=== PATIENT | female | born 1960 | race Caucasian/White ===

== ENCOUNTER → 2016-06-01 | Outpatient (CLI) | payer OTHER ==
[~2016-06-01] MED LIST: ALPR.25T PO; AMBIEN; ASCO500C14 PO; BPR75T PO; BUDE90AE IH; BUPR150T6 PO; CHOL10003 PO; CLIN-81 PO; CROM40SP NS; DIAZ5TAB3 PO; DICY20TA10 PO; DICYCLOMINE; FAMO20TA5 PO; FEXO180T PO; FLT11013 IH; FLUT10SP NS; HYDR-1231 PO; LEVO125T PO; LVF500T PO; LYRICA; NITR100C3 PO; OMEP20CA6 PO; PEG250PW PO; PREG75CA PO; TRAM50TA2 PO; ZLP10T PO; [UNRECOGNIZED DRUG - REMARK]
--- NOTE | 2016-06-01 18:26 | Diagnostic Imaging Report ---
Bilateral screening mammogram The current study was also evaluated with a Computer Aided Detection (CAD) system. Indication: Screening. No current complaints stated on the questionnaire. COMPARISON: 09/21/14. FINDINGS: The breasts are composed of scattered fibroglandular densities. Occasional punctate calcifications seen. Allowing for technique and positional differences, no suspicious change is seen. IMPRESSION: No significant change. ACR BI-RADS Category 2: Benign findings. Result letter will be mailed to the patient. Note: At least 10% of breast cancer is not imaged by mammography. Dictated by: Dictated on workstation # [id number]
== END ==
LOC: RAD 09:54
PROVIDERS: ATTEND Internal Medicine
DX: Z12.31 Encounter for screening mammogram for malignant neoplasm of breast (principal)

== ENCOUNTER → 2016-07-25 | Outpatient (CLI) | payer OTHER ==
[2016-07-25 09:20] LABS: BASOPHILS % (AUTO) 0 % (0-10); EOSINOPHILS # (AUTO) 0.2 10^3/uL (0.0-0.3); EOSINOPHILS % (AUTO) 3 % (0-10); LYMPHOCYTES # (AUTO) 2.7 X 10^3 (1.0-4.0); LYMPHOCYTES % (AUTO) 37 % (12-44); MEAN CORPUSCULAR HEMOGLOBIN 30 PG (25-34); MEAN CORPUSCULAR HGB CONC 33 G/DL (32-36); MEAN CORPUSCULAR VOLUME 92 FL (80-99); MEAN PLATELET VOLUME 12.1 FL (7.4-10.4); MONOCYTES # (AUTO) 0.5 X 10^3 (0.0-1.0); MONOCYTES % (AUTO) 7 % (0-12); NEUTROPHILS # (AUTO) 3.9 X 10^3 (1.8-7.8); NEUTROPHILS % (AUTO) 53 % (42-75); PLATELET COUNT 305 10^3/uL (130-400); RED BLOOD COUNT 4.51 10^6/uL (4.35-5.85); RED CELL DISTRIBUTION WIDTH 15.5 % (10.0-14.5); WHITE BLOOD COUNT 7.3 10^3/uL (4.3-11.0)
[2016-07-25 09:36] LABS: ALANINE AMINOTRANSFERASE 45 U/L (0-55); ALBUMIN 4.1 G/DL (3.2-4.5); ANION GAP 11 MMOL/L (5-14); ASPARTATE AMINO TRANSFERASE 28 U/L (5-34); BILIRUBIN,TOTAL 0.4 MG/DL (0.1-1.0); BLOOD UREA NITROGEN 9 MG/DL (7-18); BUN/CREATININE RATIO 11; CALCIUM 9.4 MG/DL (8.5-10.1); CARBON DIOXIDE 24 MMOL/L (21-32); CHLORIDE 106 MMOL/L (98-107); CHOLESTEROL 201 MG/DL (< 200); DIRECT LDL 120 MG/DL (1-129); GFR ESTIMATED > 60; GLUCOSE 97 MG/DL (70-105); POTASSIUM 4.5 MMOL/L (3.6-5.0); SODIUM 141 MMOL/L (135-145); TOTAL PROTEIN 6.4 G/DL (6.4-8.2); TRIGLYCERIDES 91 MG/DL (<150); VLDL CHOLESTEROL 18 MG/DL (5-40)
[2016-07-25 09:56] LABS: THYROID STIMULATING HORMONE 0.39 UIU/ML (0.35-4.94)
== END ==
LOC: LAB 08:43
PROVIDERS: ATTEND Internal Medicine
DX: Z00.00 Encounter for general adult medical examination without abnormal findings (principal); E55.9 Vitamin D deficiency, unspecified; E03.9 Hypothyroidism, unspecified; E75.6 Lipid storage disorder, unspecified
CPT/HCPCS: 36415; 80053; 80061; 82306; 84436; 84443; 85025

== ENCOUNTER → 2016-10-13 | Outpatient (CLI) | payer OTHER ==
[2016-10-13 18:09] LABS: BASOPHILS # (AUTO) 0.1 10^3/uL (0.0-0.1); BASOPHILS % (AUTO) 1 % (0-10); EOSINOPHILS # (AUTO) 0.3 10^3/uL (0.0-0.3); EOSINOPHILS % (AUTO) 3 % (0-10); LYMPHOCYTES # (AUTO) 3.4 X 10^3 (1.0-4.0); LYMPHOCYTES % (AUTO) 32 % (12-44); MEAN CORPUSCULAR HEMOGLOBIN 30 PG (25-34); MEAN CORPUSCULAR HGB CONC 32 G/DL (32-36); MEAN CORPUSCULAR VOLUME 93 FL (80-99); MEAN PLATELET VOLUME 12.3 FL (7.4-10.4); MONOCYTES # (AUTO) 0.9 X 10^3 (0.0-1.0); MONOCYTES % (AUTO) 8 % (0-12); NEUTROPHILS % (AUTO) 57 % (42-75); PLATELET COUNT 339 10^3/uL (130-400); RED BLOOD COUNT 5.03 10^6/uL (4.35-5.85); RED CELL DISTRIBUTION WIDTH 15.5 % (10.0-14.5); WHITE BLOOD COUNT 10.5 10^3/uL (4.3-11.0)
[2016-10-13 18:41] LABS: ALANINE AMINOTRANSFERASE 41 U/L (0-55); ALBUMIN 4.4 G/DL (3.2-4.5); ANION GAP 11 MMOL/L (5-14); ASPARTATE AMINO TRANSFERASE 26 U/L (5-34); BILIRUBIN,TOTAL 0.4 MG/DL (0.1-1.0); BLOOD UREA NITROGEN 16 MG/DL (7-18); BUN/CREATININE RATIO 19; CALCIUM 9.9 MG/DL (8.5-10.1); CARBON DIOXIDE 25 MMOL/L (21-32); CHLORIDE 104 MMOL/L (98-107); CREATININE SERUM 0.83 MG/DL (0.60-1.30); GFR ESTIMATED > 60; GLUCOSE 87 MG/DL (70-105); POTASSIUM 4.3 MMOL/L (3.6-5.0); SODIUM 140 MMOL/L (135-145); TOTAL PROTEIN 7.9 G/DL (6.4-8.2)
== END ==
LOC: LAB 17:57
PROVIDERS: ATTEND Physician Assistant
DX: L40.0 Psoriasis vulgaris (principal)
CPT/HCPCS: 36415; 80053; 85025

== ENCOUNTER → 2016-10-20 | Outpatient (CLI) | payer OTHER ==
[2016-10-20 08:27] LABS: ALANINE AMINOTRANSFERASE 34 U/L (0-55); ALBUMIN 4.1 G/DL (3.2-4.5); ANION GAP 10 MMOL/L (5-14); ASPARTATE AMINO TRANSFERASE 20 U/L (5-34); BILIRUBIN,TOTAL 0.7 MG/DL (0.1-1.0); BLOOD UREA NITROGEN 15 MG/DL (7-18); BUN/CREATININE RATIO 18; CALCIUM 9.5 MG/DL (8.5-10.1); CARBON DIOXIDE 24 MMOL/L (21-32); CHLORIDE 106 MMOL/L (98-107); CHOLESTEROL 188 MG/DL (< 200); CREATININE SERUM 0.84 MG/DL (0.60-1.30); GFR ESTIMATED > 60; GLUCOSE 119 MG/DL (70-105); SODIUM 140 MMOL/L (135-145); TOTAL PROTEIN 7.1 G/DL (6.4-8.2); TRIGLYCERIDES 98 MG/DL (<150)
[2016-10-20 08:48] LABS: THYROID STIMULATING HORMONE 0.41 UIU/ML (0.35-4.94)
== END ==
LOC: LAB 07:41
PROVIDERS: ATTEND Internal Medicine
DX: Z00.00 Encounter for general adult medical examination without abnormal findings (principal); E77.9 Disorder of glycoprotein metabolism, unspecified; E55.9 Vitamin D deficiency, unspecified; E03.9 Hypothyroidism, unspecified
CPT/HCPCS: 36415; 80053; 82306; 82465; 84439; 84443; 84478

== ENCOUNTER → 2017-03-04 | Outpatient (CLI) | payer OTHER ==
[2017-03-04 08:07] LABS: ALANINE AMINOTRANSFERASE 27 U/L (0-55); ALBUMIN 3.9 GM/DL (3.2-4.5); ANION GAP 8 MMOL/L (5-14); ASPARTATE AMINO TRANSFERASE 21 U/L (5-34); BILIRUBIN,TOTAL 0.4 MG/DL (0.1-1.0); BLOOD UREA NITROGEN 10 MG/DL (7-18); BUN/CREATININE RATIO 14; CALCIUM 9.2 MG/DL (8.5-10.1); CARBON DIOXIDE 25 MMOL/L (21-32); CHLORIDE 104 MMOL/L (98-107); CHOLESTEROL 203 MG/DL (< 200); CREATININE SERUM 0.73 MG/DL (0.60-1.30); DIRECT LDL 114 MG/DL (1-129); GFR ESTIMATED > 60; GLUCOSE 89 MG/DL (70-105); POTASSIUM 4.2 MMOL/L (3.6-5.0); SODIUM 137 MMOL/L (135-145); TRIGLYCERIDES 135 MG/DL (<150); VLDL CHOLESTEROL 27 MG/DL (5-40)
[2017-03-04 08:28] LABS: THYROID STIMULATING HORMONE 2.21 UIU/ML (0.35-4.94)
== END ==
LOC: LAB 07:35
PROVIDERS: ATTEND Internal Medicine
DX: E78.00 Pure hypercholesterolemia, unspecified (principal); E78.1 Pure hyperglyceridemia; E03.9 Hypothyroidism, unspecified
CPT/HCPCS: 36415; 80053; 80061; 84439; 84443

== ENCOUNTER → 2017-03-31 | Outpatient (CLI) | payer OTHER ==
[~2017-03-31] MED LIST changes: +GADOBUTROL 10 MMOL/10 ML (GADAVIST) VIAL IV ONE
--- NOTE | 2017-03-31 16:53 | Diagnostic Imaging Report ---
PROCEDURE: MR imaging of the brain with and without contrast. TECHNIQUE: Multiplanar, multisequence MR imaging of the brain was performed with and without contrast. INDICATION: Intractable absence type of epilepsy. 9 mL of Gadavist is administered intravenously. FINDINGS: There is no diffusion restriction to suggest an acute infarct. There is periventricular and deep white matter T2 hyperintense signal abnormalities likely related to chronic microvascular ischemic changes. These are not associated with mass effect or contrast enhancement. The brainstem and the cerebellum appear unremarkable. Central vascular flow-voids appear grossly unremarkable. The internal auditory canal and inner ear structures appear symmetric. The pituitary gland is normal in size. No hypothalamic or pineal region mass is seen. There is no hypothalamic or pineal region mass. There is no susceptibility artifact seen in the brain on gradient-echo images to suggest blood products from prior hemorrhage. The orbits appear grossly unremarkable. Minimal mucosal thickening in the ethmoid air cells are seen. IMPRESSION: Supratentorial periventricular, and deep white matter T2 hyperintense signal lesions are most commonly secondary to chronic microvascular ischemic changes. These are nonspecific however and could potentially relate to a demyelinating process or small vessel vasculitis in the appropriate clinical settings. No enhancing mass. Dictated by: Dictated on workstation # [id number]
== END ==
LOC: RAD 13:59
PROVIDERS: ATTEND Internal Medicine
DX: G40.A19 Absence epileptic syndrome, intractable, without status epilepticus (principal)
CPT/HCPCS: 70553

== ENCOUNTER → 2017-04-26 | Day surgery (SDC) | payer OTHER ==
[~2017-04-26] MED LIST changes: -GADOBUTROL 10 MMOL/10 ML (GADAVIST) VIAL IV ONE
--- OUTSIDE RECORDS SUMMARY | 2017-04-26 11:43 | XMS REPORT ---
Author ANA Duque [employer] Address Unknown Phone Unavailable Care Team Providers Care Talent Management Manager Name Role Phone ANA KIM Unavailable Allergies No Known Allergies Problems Problem Type Condition Code Onset Dates Condition Status Problem Generalized anxiety disorder F41.1 Active Assessment Dysthymic disorder F34.1 Active Problem Dysthymic disorder F34.1 Active Assessment Generalized anxiety disorder F41.1 Active Medications No Known Medications Procedures Procedure Coding System Code Date Psychotherapy, patient &/family, 45 minutes, established patient CPT-4 57671 Apr 30, 2015 Results No Known Results Summary Purpose e[employer] Submission
--- OUTSIDE RECORDS SUMMARY | 2017-04-26 11:43 | XMS REPORT ---
Author Author ANA KIM [facility] Address [address] [place] [address] Care Team Providers Care Fresh Work Inspector Name Role Phone ANA KIM Unavailable PROBLEMS Type Condition ICD9-CM Code [id number] Code Onset Dates Condition Status SNOMED Code Problem Dysthymic disorder F34.1 Active 81249364 Problem Generalized anxiety disorder F41.1 Active 303803665 ALLERGIES No Information SOCIAL HISTORY Never Assessed PLAN OF CARE Activity Details Follow Up 4 Weeks Reason: Follow-up VITAL SIGNS MEDICATIONS Unknown Medications RESULTS No Results PROCEDURES Procedure Date Ordered Result Body Site Psychotherapy, patient &/family, 45 minutes, established patient July 29, 2016 IMMUNIZATIONS No Known Immunizations
--- OUTSIDE RECORDS SUMMARY | 2017-04-26 11:43 | XMS REPORT ---
Author Author ANA KIM [facility] Address [address] [place] [address] Care Team Providers Care Farrowing Manager Name Role Phone ANA KIM Unavailable PROBLEMS Type Condition ICD9-CM Code [id number] Code Onset Dates Condition Status SNOMED Code Problem Dysthymic disorder F34.1 Active 20800772 Problem Generalized anxiety disorder F41.1 Active [id number] ALLERGIES No Information SOCIAL HISTORY Never Assessed PLAN OF CARE VITAL SIGNS MEDICATIONS Unknown Medications RESULTS No Results PROCEDURES No Known procedures IMMUNIZATIONS No Known Immunizations
--- OUTSIDE RECORDS SUMMARY | 2017-04-26 11:43 | XMS REPORT ---
Author Author ANA KIM [facility] Address [address] [place] [address] Care Team Providers Care Warehouse Production Worker Name Role Phone ANA KIM Unavailable PROBLEMS Type Condition ICD9-CM Code [id number] Code Onset Dates Condition Status SNOMED Code Problem Dysthymic disorder F34.1 Active 42567580 Problem Generalized anxiety disorder F41.1 Active 712075431 ALLERGIES No Information SOCIAL HISTORY Never Assessed PLAN OF CARE Activity Details Follow Up 4 Weeks Reason: FOllow-up VITAL SIGNS MEDICATIONS Unknown Medications RESULTS No Results PROCEDURES Procedure Date Ordered Result Body Site Psychotherapy, patient &/family, 45 minutes, established patient Jul 01, 2016 IMMUNIZATIONS No Known Immunizations
--- OUTSIDE RECORDS SUMMARY | 2017-04-26 11:44 | XMS REPORT ---
Author ANA Duque [employer] Address Unknown Phone Unavailable Care Team Providers Care Change Room Attendant Name Role Phone ANA KIM Unavailable Allergies No Known Allergies Problems Problem Type Condition Code Onset Dates Condition Status Problem Generalized anxiety disorder F41.1 Active Assessment Dysthymic disorder F34.1 Active Problem Dysthymic disorder F34.1 Active Assessment Generalized anxiety disorder F41.1 Active Medications No Known Medications Procedures Procedure Coding System Code Date Psychotherapy, patient &/family, 45 minutes, established patient CPT-4 46464 December 04, 2015 Results No Known Results Summary Purpose eClinicalWorks Submission
--- OUTSIDE RECORDS SUMMARY | 2017-04-26 11:44 | XMS REPORT ---
Author Author ANA KIM [facility] Address [address] [place] [address] Care Team Providers Care Cooker Chip Name Role Phone ANA KIM Unavailable PROBLEMS Type Condition ICD9-CM Code CHV47-CG Code Onset Dates Condition Status SNOMED Code Problem Dysthymic disorder F34.1 Active 98655456 Problem Generalized anxiety disorder F41.1 Active 165322069 Assessment Dysthymic disorder F34.1 Jan, Active [id number] ALLERGIES Unknown Allergies SOCIAL HISTORY No smoking Hx information available PLAN OF CARE VITAL SIGNS MEDICATIONS Unknown Medications RESULTS No Results PROCEDURES Procedure Date Ordered Related Diagnosis Body Site Psychotherapy, patient &/family, 45 minutes, established patient Feb 05, 2016 IMMUNIZATIONS No Known Immunizations
--- OUTSIDE RECORDS SUMMARY | 2017-04-26 11:44 | XMS REPORT ---
Author Author ANA KIM [facility] Address [address] [place] [address] Care Team Providers Care Manager Card Name Role Phone ANA KIM Unavailable PROBLEMS Type Condition ICD9-CM Code [id number] Code Onset Dates Condition Status SNOMED Code Problem Dysthymic disorder F34.1 Active 87454010 Problem Generalized anxiety disorder F41.1 Active [id number] ALLERGIES No Information SOCIAL HISTORY Never Assessed PLAN OF CARE Activity Details Follow Up 4 Weeks Reason: Follow-up VITAL SIGNS MEDICATIONS Unknown Medications RESULTS No Results PROCEDURES Procedure Date Ordered Result Body Site Psychotherapy, patient &/family, 45 minutes, established patient September 23, 2016 IMMUNIZATIONS No Known Immunizations
--- OUTSIDE RECORDS SUMMARY | 2017-04-26 11:45 | XMS REPORT | Clinical Summary ---
Author Author User, CYNDI Organization Pending Sale To [facility] Address Unknown Phone Unavailable Allergies, Adverse Reactions, Alerts Allergy Name Reaction Description Start Date Severity Status Provider PENICILLIN Critical Active Radha Kisha Archibald ALBUTEROL esophageal spasms Critical Active Radha Kisha Archibald SULFA Critical Active Radha Kisha Álvarezner ANTI-INFLAMMATORIES Esophageal spasms, rash Critical Active Radha Kisha Archibald Conditions or Problems Problem Name Problem Code Onset Date Status Entry Date Provider Comment Standard Description Annotate MUSCLE SPASM, BACK 724.8 Resolved Radha Archibald Other symptoms referable to back HYPOTHYROIDISM 244.9 Active Radha Archibald Unspecified hypothyroidism FIBROMYALGIA 729.1 Active Radha Archibald Myalgia and myositis, unspecified SMOKER 305.1 Resolved Radha Archibald Tobacco use disorder DEPRESSION 311 Active Radha Archibadl Depressive disorder, not elsewhere classified INSOMNIA, CHRONIC 780.52 Active Radha Archibald Insomnia, unspecified NEUROPATHY, IDIOPATHIC PERIPHERAL 356.9 Resolved Radha Archibald Unspecified idiopathic peripheral neuropathy DERMATITIS, INFECTIVE, EYELID W/DEFORMITY 373.4 Resolved Radha Archibald Infective dermatitis of eyelid of types resulting in deformity TOE PAIN 729.5 Resolved Radha Archibald Pain in limb CALLUS, RIGHT FOOT 700 Resolved Radha Archibald Corns and callosities ANOMALY, CONGENITAL, 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 Radha Archibald Anomalies of foot, congenital, NEC NEUROPATHY, IDIOPATHIC PERIPHERAL 356.9 Resolved Radha Archibald Unspecified idiopathic peripheral neuropathy SCREENING FOR CONTAMINATION NEC V82.5 Resolved Radha Archibald Screening for chemical poisoning and other contamination ECZEMA 692.9 Resolved Radha Archibald Contact dermatitis and other eczema, unspecified cause COUGH 786.2 Resolved Radha Archibald Cough RALES 786.7 Resolved Radha Archibald Abnormal chest sounds DYSPHAGIA 787.2 Resolved Radha Archibald Dysphagia GERD 530.81 Active Radha Archibald Esophageal reflux FINGER PAIN 729.5 Resolved Radha Archibald Pain in limb COUGH 786.2 Resolved Radha Archibald Cough BRONCHITIS 490 Resolved Radha Archibald Bronchitis, not specified as acute or chronic WHEEZING 786.07 Resolved Radha Archibald Wheezing VAGINITIS 616.1 Resolved Radha Archibald Vaginitis and vulvovaginitis VAGINAL DISCHARGE 623.5 Resolved Radha Archibald Leukorrhea, not specified as infective TINEA CRURIS 110.3 Resolved Radha Archibald Dermatophytosis of groin and perianal area HAND PAIN, LEFT 729.5 Resolved Radha Archibald Pain in limb FLANK PAIN, LEFT 789.09 Resolved Radha Archibald Abdominal pain, other specified site; multiple sites SCIATICA 724.3 Resolved Radha Archibald Sciatica OM, ACUTE SEROUS 381.01 Resolved Radha Archibald Acute serous otitis media ENTHESOPATHY, HIP 726.5 Resolved Radha Archibald Enthesopathy of hip region WELL WOMAN V70.0 Resolved Radha Archibald Routine general medical examination at a health care facility SYMPTOM, WHEEZING 786.07 Resolved Radha Archibald Wheezing CHEST PAIN, ATYPICAL 786.59 Resolved Radha Archibald Other chest pain ABDOMINAL PAIN, LOWER 789.09 Resolved Radha Archibald Abdominal pain, other specified site; multiple sites HEMATOCHEZIA 578.1 Resolved Radha Archibald Blood in stool LEG PAIN, RIGHT 729.5 Resolved Radha Archibald Pain in limb HYPERGLYCEMIA, MILD 790.6 Resolved Radha Archibald Other abnormal blood chemistry MENOPAUSAL SYNDROME 627.0 Resolved Radha Archibald Premenopausal menorrhagia CELLULITIS 682.9 Resolved Radha Archibald Cellulitis and abscess of unspecified sites URTICARIA, ACUTE 708.9 Resolved Radha Archibald Unspecified urticaria CHEST PAIN, ATYPICAL 786.59 Resolved Radha Archibald Other chest pain GANGLION CYST, WRIST, RIGHT 727.41 Active Radha Archibald Ganglion of joint WELL WOMAN V70.0 Resolved Radha Archibald Routine general medical examination at a health care facility CONCUSSION WITH LOC OF 30 MINUTES OR LESS 850.11 Resolved 09/26 Radha Archibald Concussion with loss of consciousness of 30 minutes or less 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 Radha Archibald Narcolepsy without cataplexy FATIGUE 780.79 Active Radha Archibald Other malaise and fatigue HEMORRHOIDS 455.6 Active Radha Archibald Unspecified hemorrhoids without mention of complication WELL WOMAN V70.0 Resolved Radha Archibald Routine general medical examination at a health care facility WHEEZING 786.07 Resolved Radha Archibald Wheezing CELLULITIS/ABSCESS, SITE NEC 682.8 Resolved Radha Archibald Cellulitis and abscess of other specified sites WEIGHT GAIN, ABNORMAL 783.1 Active Radha Archibald Abnormal weight gain Medication List Medication Instructions Start Date Stop Date Generic Name NDC Status Provider Patient Instruction LEVAQUIN 500 MG TAB 1 PO QD LEVOFLOXACIN 96803040099 No Longer Active Radha Archibald PREDNISONE 10 MG TAB 4 PO at one time for 2 days, then 2 PO at one time for 3 days, then 1 PO daily for 4 days. PREDNISONE 08561100010 No Longer Active Radha Archibald BIAXIN 500 MG TAB 1 PO BID CLARITHROMYCIN 40034322538 No Longer Active Radha Archibald LEVOTHYROXINE SODIUM 125 MCG TABS 1 PO daily LEVOTHYROXINE SODIUM 59754782123 Active Sylvia Kahn PRILOSEC 20 MG CPDR 1 PO BID OMEPRAZOLE 32732334648 Active Sylvia Kahn VERAMYST 27.5 MCG/SPRAY SUSP 2 puffs each nostril daily FLUTICASONE FUROATE 07080305422 No Longer Active Radha Archibald NASALCROM 5.2 MG/ACT AERS 2 puffs each nostril prn CROMOLYN SODIUM 17948070178 No Longer Active Radhachristiano Archibald MIRALAX POWD 1 scoop in 4oz of water PO daily prn POLYETHYLENE GLYCOL 3350 97230580883 No Longer Active Radha Kisha Archibald PEPCID 20 MG TABS 1 PO daily FAMOTIDINE 17274862280 No Longer Active Radha Kisha Archibald WELLBUTRIN 75 MG TABS 1 PO TID BUPROPION HCL 06749917636 No Longer Active Radha Kisha Archibald AMBIEN 5 MG TABS 1 PO QHS ZOLPIDEM TARTRATE 62259730272 Active Sylvia Kahn NITROSTAT 0.4 MG SL TAB 1 pill under tongue prn chest pain. 11/08 NITROGLYCERIN 39263778978 No Longer Active Radha Kisha Archibald CLOBETASOL PROPIONATE 0.05 % FOAM Apply to affected scalp daily CLOBETASOL PROPIONATE 14013943733 No Longer Active Radha Kisha Archibald LYRICA 75 MG CAPS 1 PO BID PREGABALIN 85099222194 Active Sylvia Kahn ATARAX 25 MG TAB 1 PO Q4 hours prn itching HYDROXYZINE HCL No Longer Active Radhachristiano Archibald PREDNISONE 20 MG TAB 3 pills daily at once for 3 days, 2 pills daily at once for 3 days, 1 once daily for 3 days PREDNISONE 08845818504 No Longer Active Radhachristiano Archibald EFFEXOR XR 150 MG [id number] 1 PO daily VENLAFAXINE HCL 80868936936 Active Sylvia Kahn BACTROBAN 2 % CREAM Apply to affected area TID MUPIROCIN CALCIUM 35704291627 No Longer Active Radhachristiano Archibald DOXYCYCLINE HYCLATE 100 MG CAP 1 po BID DOXYCYCLINE HYCLATE 52908593157 No Longer Active Radhachristiano Archibald PRISTIQ 50 MG [id number] 1 PO daily DESVENLAFAXINE SUCCINATE 01395033068 No Longer Active Radha Kisha Archibald PREDNISONE 20 MG TAB 2 pills at once for 2 days then 1 pill daily for 2 days PREDNISONE 93356183760 No Longer Active Radha Kisha Archibald BIAXIN 500 MG TAB 1 PO BID CLARITHROMYCIN 50639016109 No Longer Active Radha Kisha Archibald QVAR 80 MCG/ACT AERS 2 puffs BID BECLOMETHASONE DIPROPIONATE 48636966810 No Longer Active Radha Kisha Archibald PULMICORT FLEXHALER 90 MCG/ACT AEPB 1 puff twice daily BUDESONIDE 92775871403 Active Sylviavinnie Vivastis FLOVENT 110 MCG/ACT AEROSOL 1 puff BID prn FLUTICASONE PROPIONATE (INHAL) No Longer Active Radha Kisha Archibald PROAIR HFA 108 (90 BASE) MCG/ACT AERS 2 puff Q4 hrs prn wheezing ALBUTEROL SULFATE 23011151627 Active Radha Kisha Archibald TESSALON 200 MG CAPS 1 PO TID prn cough BENZONATATE 98187507618 No Longer Active Radha Kisha Archibald PREDNISONE 20 MG TAB 2 pills at once for 2 days then 1 pill daily for 2 days PREDNISONE 97491214971 No Longer Active Radha Kisha Archibald BIAXIN 500 MG TAB 1 PO BID CLARITHROMYCIN 63375797951 No Longer Active Radha Kisha Archibald TESSALON 200 MG CAPS 1 PO TID prn cough BENZONATATE 10711784801 No Longer Active Radha Kisha Archibald BIAXIN XL PAC 500 MG TB24 2 pills at same time daily for 7 days CLARITHROMYCIN 65241325104 No Longer Active Radha Kisha Archibald PRISTIQ 50 MG [id number] 1 PO daily DESVENLAFAXINE SUCCINATE 18221718275 No Longer Active Radhachristiano Archibald WELLBUTRIN 75 MG TABS 1 PO daily for 1 week then 1 PO every other day for 1 week then stop and go on Cymbalta 30mg daily. BUPROPION HCL 92195228453 No Longer Active Radhachristiano Archibald CYMBALTA 30 MG CPEP 1 PO daily DULOXETINE HCL 72656092909 No Longer Active Radha Kisha Archibald PREDNISONE 20 MG TAB 3 pills daily at once for 3 days, 2 pills daily at once for 4 days, 1 once daily for 3 days PREDNISONE 29417575074 No Longer Active Radhachristiano Archibald CYMBALTA 60 MG CPEP 1 PO Daily DULOXETINE HCL 68304032371 No Longer Active Radhachristiano Archibald DIFLUCAN 150 MG TAB 1 PO QD once FLUCONAZOLE 73461094319 No Longer Active Radhachristiano Archibald LUXIQ 0.12 % FOAM Apply to affected area on scalp daily prn BETAMETHASONE VALERATE 82223104990 No Longer Active Sylviavinnie Kahn CYMBALTA 30 MG CPEP 1 PO Daily for 7 days then change to 60mg Daily DULOXETINE HCL 71084793334 No Longer Active Radha Archibald NAHEED 60 MG CAP 1 PO BID FEXOFENADINE HCL No Longer Active Radhachristiano Archibald NAHEED 180 MG TABS 1 PO QD FEXOFENADINE HCL 66166920369 Active Radhachristiano Archibald VITAMIN D 1000 UNIT TABS 1 PO Daily CHOLECALCIFEROL 90451932824 Active Radhachristiano Archibald TRAMADOL HCL 50 MG TABS 1-2 PO Q6hrs prn pain not to exceed 8 pills a day TRAMADOL HCL 31550764082 Active Radhachristiano Archibald XANAX 0.25 MG TABS 1 PO Q6hrs prn ALPRAZOLAM 71384717909 Active Radha Kisha Archibald DICYCLOMINE HCL 20 MG TABS 1 PO QID DICYCLOMINE HCL 85764710549 Active Radha Kisha Archibald VITAMIN C 500 MG TAB 1 PO daily ASCORBIC ACID 45764675819 Active Radha Kisha Archibald XANAX 0.25 MG TABS 1-2 q 6 hrs. prn ALPRAZOLAM 44374405190 No Longer Active Radha Kisha Archibald FLOVENT HFA 110 MCG/ACT AERO 1 puff twice daily prn FLUTICASONE PROPIONATE HFA 94511853683 No Longer Active Radha Kisha Archibald KENALOG 0.1 % CREA apply bid to affected areas no longer than 7 days in a row TRIAMCINOLONE ACETONIDE 00702717158 No Longer Active Radha Kisha Archibald NASONEX 50 MCG/ACT SUSP 2 puffs QD prn MOMETASONE FUROATE 25415156955 No Longer Active Radha Kisha Archibald LORTAB 5 5-500 MG TABS 1 to 2 PO Q6hrs prn ACETAMINOPHEN-HYDROCODONE 93878218321 No Longer Active Radha Kisha Archibald PREDNISONE 20 MG TAB 3 PO daily for 1 days, 2 PO daily for 2 days then 1 PO daily for 2 days PREDNISONE 44561241237 No Longer Active Radha Kisha Archibald TESSALON 200 MG CAPS 1 PO TID prn BENZONATATE 63952657681 No Longer Active Radha Kisha Archibald ROBITUSSIN A-C 10-100 MG/5ML SYRUP 1 teaspoon PO Q 4-6 hr prn ROBITUSSIN A-C 10-100 MG/5ML SYRUP 86680174985 No Longer Active Radha Kisha Archibald BIAXIN XL PAC 500 MG TB24 2 pills at same time daily for 7 days CLARITHROMYCIN 75278894387 No Longer Active Radha Kisha Archibald LYRICA 75 MG CAPS 1 PO BID PREGABALIN 28773007340 No Longer Active Radha Archibald PREDNISONE 20 MG TAB 3 PO daily for 1 days, 2 PO daily for 2 days then 1 PO daily for 2 days PREDNISONE 28786623632 No Longer Active Radhachristiano Archibald TRIAMCINOLONE ACETONIDE 0.1 % OINT apply very small amount on q-tip to right lower eyel id area BID for 7 days TRIAMCINOLONE ACETONIDE 46248468161 No Longer Active Radhachristiano Archibald CILOXAN 0.3 % SOLN 2 drops right eye TID for 7 days CIPROFLOXACIN HCL 52136708306 No Longer Active Radhachrisitano Archibald CHANTIX 1 MG TABS 1 po BID VARENICLINE TARTRATE 90620330688 No Longer Active Radhachristiano Archibald LIDOCAINE VISCOUS 2 % SOLN 1/2 teaspoon gargle Q 2 hrs prn 05/24 LIDOCAINE HCL 44391877223 No Longer Active Radha Archibald DIFLUCAN 150 MG TAB 1 PO QD FOR 3 DAYS FLUCONAZOLE 43491652372 No Longer Active Adryan Lawrence TERAZOL 7 0.4 % CREA 1 applicator full per vagina QHS for 7 days TERCONAZOLE VAGINAL 05679523675 No Longer Active Adryan Lawrence LOTRISONE 0.05-1 % CREAM apply to affected areas BID for 7 days CLOTRIMAZOLE-BETAMETHASONE 81339892383 No Longer Active Radhachristiano Archibald BIAXIN 500 MG TAB 1 PO BID for 7 days CLARITHROMYCIN 31884735965 No Longer Active Radhachristiano Archibald PREDNISONE 20 MG TAB 3 PO daily for 2 days, 2 PO daily for 2 days, 1 PO daily for 2 days PREDNISONE 81229501034 No Longer Active Radhachristiano Archibald CODICLEAR DH 5-100 MG/5ML SYRP 5 cc Po Q4-6prn HYDROCODONE-GUAIFENESIN 45004448320 No Longer Active Radha Kisha Archibald AUGMENTIN 875-125 MG TAB 1 PO BID AMOXICILLIN-POT CLAVULANATE 35287836646 No Longer Active Radha Kisha Archibald NEXIUM 40 MG CPDR 1 PO daily ESOMEPRAZOLE MAGNESIUM 07429634282 No Longer Active Radha Kisha Archibald WELLBUTRIN XL 150 MG TB24 1 PO daily BUPROPION HCL 68607399400 No Longer Active Radha Kisha Archibald FLOVENT 220 MCG/ACT AERO 1 puff BID for 7 days FLUTICASONE PROPIONATE (INHAL) 41693311307 No Longer Active Radha Kisha Archibald NEURONTIN 100 MG CAP 1 PO QHS GABAPENTIN 31900321532 No Longer Active Radha Kisha Archibald CILOXAN 0.3 % OINT 1/2 inch ribbon to right eye TID x 1 week 2003 CIPROFLOXACIN HCL 27401571983 No Longer Active Radha Kisha Archibald TYLENOL/CODEINE #3 300-30 MG TABS 1 po Q 4-6 hrs. prn pain 03/17 ACETAMINOPHEN-CODEINE 73714796083 No Longer Active Radha Kisha Archibald SOMA 350 MG TABS 1 po TID prn CARISOPRODOL 05148316562 No Longer Active Radha Kisha Archibald CLARINEX 5 MG TABS 1 po daily DESLORATADINE 82589416483 No Longer Active Ardha Kisha Archibald Immunizations Vaccine Administration Date Value Standard Description tetanus immunization Done tetanus toxoid, unspecified formulation Influenza vaccine given done influenza virus vaccine, unspecified formulation Vital Signs Date Name Value Unit Range Description blood pressure, diastolic - 8462-4 65 mm[Hg] BP hodge blood pressure, systolic - 8480-6 135 mm[Hg] BP sys pulse rate E&M - 8867-4 70 /min Heart rate respiratory rate E&M - 9279-1 14 /min Resp rate weight E&M - 3141-9 234 [lb_av] Weight Measured blood pressure, diastolic - 8462-4 68 mm[Hg] BP hodge blood pressure, systolic - 8480-6 132 mm[Hg] BP sys pulse rate E&M - 8867-4 70 /min Heart rate respiratory rate E&M - 9279-1 14 /min Resp rate temperature E&M 97.1 [degF] Body temperature weight E&M - 3141-9 238 [lb_av] Weight Measured blood pressure, diastolic - 8462-4 60 mm[Hg] BP hodge blood pressure, systolic - 8480-6 116 mm[Hg] BP sys pulse rate E&M - 8867-4 68 /min Heart rate respiratory rate E&M - 9279-1 14 /min Resp rate temperature E&M 98.4 [degF] Body temperature weight E&M - 3141-9 203 [lb_av] Weight Measured blood pressure, diastolic - 8462-4 84 mm[Hg] BP hodge blood pressure, systolic - 8480-6 142 mm[Hg] BP sys pulse rate E&M - 8867-4 84 /min Heart rate respiratory rate E&M - 9279-1 14 /min Resp rate temperature E&M 98.3 [degF] Body temperature weight E&M - 3141-9 203 [lb_av] Weight Measured Diagnostic Results Date Name Value Unit Range Description Clinical Lists Update: CBC,CMP,FLP,TSH,Free T4 - Chemistry alkaline phosphatase, serum 83 U/L albumin, serum 4.0 g/dL calcium, serum 9.3 mg/dL chloride, serum 104 mmol/L cholesterol, serum 221 mg/dL carbon dioxide, venous blood 28 mmol/L creatinine, serum 0.81 mg/dL thyroxine, serum, free 1.17 ng/dL HDL cholesterol, serum 68 mg/dL thyroid stimulating hormone, serum 1.94 u[iU]/mL LDL cholesterol, serum 132 mg/dL potassium, serum 4.2 mmol/L protein, total, serum 6.9 g/dL aspartate aminotransferase (SGOT), serum 43 U/L alanine aminotransferase (SGPT), serum 64 U/L bilirubin, serum, total 0.5 mg/dL triglyceride, serum, fasting 84 mg/dL sodium, serum 141 mmol/L very low density lipoproteins 17 mg/dL glucose, plasma fasting 98 mg/dL Estimated Glomerular Filtration Rate (calc) >60 mL/min/1.73m2 urea nitrogen, blood 11 mg/dL Clinical Lists Update: CMP,FLP,TSH,Free T4 - Chemistry albumin, serum 4.0 g/dL alkaline phosphatase, serum 88 U/L urea nitrogen, blood 8 mg/dL calcium, serum 9.8 mg/dL chloride, serum 107 mmol/L cholesterol, serum 205 mg/dL carbon dioxide, venous blood 26 mmol/L creatinine, serum 0.77 mg/dL thyroxine, serum, free 1.19 ng/dL HDL cholesterol, serum 62 mg/dL thyroid stimulating hormone, serum 3.53 u[iU]/mL LDL cholesterol, serum 127 mg/dL potassium, serum 4.3 mmol/L protein, total, serum 7.1 g/dL aspartate aminotransferase (SGOT), serum 39 U/L alanine aminotransferase (SGPT), serum 53 U/L bilirubin, serum, total 0.4 mg/dL triglyceride, serum, fasting 96 mg/dL sodium, serum 144 mmol/L very low density lipoproteins 19 mg/dL Estimated Glomerular Filtration Rate (calc) >60 mL/min/1.73m2 glucose, plasma fasting 100 mg/dL Encounters Code Encounter Date Provider Facility CPT-31014 Ofc Vst, Est Level IV 14:29:57 CDT Radha Kisha Archibald [facility] CPT-36091 Ofc Vst, Est Level IV 17:11:25 CDT Radha Kisha Archibald [facility] CPT-82566 Ofc Vst, Est Level III 17:34:21 ADMINISTRATIVE OFFICE MANAGER [facility] Kisha Archibald [place] CPT-90780 Ofc Vst, Est Level IV 19:46:53 CDT Rahdachristiano Archibald, DO, FACP CPT-10710 Ofc Vst, Est Level III 21:26:57 CDT Radhachristiano Archibald, DO, FACP CPT-72317 Ofc Vst, Est Level III 21:40:05 ADMINISTRATIVE OFFICE MANAGER Radha Archibald, DO, FACP CPT-43705 Ofc Vst, Est Level III 11:54:44 CDT Radhachristiano Archibald, DO, FACP CPT-92804 Ofc Vst, Est Level III 12:59:52 ADMINISTRATIVE OFFICE MANAGER Radha Archibald, DO, FACP CPT-92856 Ofc Vst, Est Level III 14:13:57 CDT Radhachristiano Archibald, DO, FACP CPT-28172 Ofc Vst, Est Level IV 15:12:56 CDT Radha Kisha Archibald [facility] CPT-44807 Ofc Vst, Est Level IV 10:49:43 CDT Radhachristiano Collier Dragan, DO, FACP CPT-30705 Ofc Vst, Est Level IV 15:49:18 CDT Radha Collier Dragan, DO, FACP CPT-28537 Ofc Vst, Est Level IV 10:47:30 ADMINISTRATIVE OFFICE MANAGER Radha Collier Dragan, DO, FACP CPT-72618 Ofc Vst, Est Level III 15:05:01 ADMINISTRATIVE OFFICE MANAGER Radha Collier Dragan, DO, FACP CPT-28321 Ofc Vst, Est Level IV 15:14:17 CDT Radha Archibald [facility] CPT-85237 Ofc Vst, Est Level IV 16:12:25 CDT Radha Kisha Collier Dragan, DO, FACP CPT-70107 Office Consult, Level IV 11:08:13 ADMINISTRATIVE OFFICE MANAGER Radha Collier Dragan, DO, FACP CPT-52311 Ofc Vst, Est Level IV 09:39:05 CDT Radhachristiano Collier Dragan, DO, FACP CPT-21113 Ofc Vst, Est Level IV 09:46:15 CDT Radhachristiano Collier Dragan, DO, FACP CPT-00413 Ofc Vst, Est Level V 09:27:49 CDT Radha Kisha Collier Dragan, DO, FACP CPT-08816 Ofc Vst, Est Level V 16:56:13 CDT Radha Archibald [facility] CPT-10557 Ofc Vst, Est Level V 16:24:52 CDT Radhachristiano Collier Dragan, DO, FACP CPT-29477 Ofc Vst, Est Level IV 15:51:57 CDT Radhachristiano Collier Archibald, DO, FACP CPT-93335 Ofc Vst, Est Level III 14:02:43 CDT Radha Collier Dragan, DO, FACP CPT-37796 Ofc Vst, Est Level III 09:45:54 CDT Radha Kisha Collier Dragan, DO, FACP CPT-05219 Ofc Vst, Est Level III 12:11:16 CDT Radha Kisha Collier Dragan, DO, FACP CPT-58121 Ofc Vst, Est Level IV 14:28:01 ADMINISTRATIVE OFFICE MANAGER Radha Collier Dragan, DO, FACP CPT-02618 Ofc Vst, Est Level IV 13:04:53 ADMINISTRATIVE OFFICE MANAGER Radha Collier Dragan, DO, FACP CPT-52119 Ofc Vst, Est Level III 09:53:23 ADMINISTRATIVE OFFICE MANAGER Radha Collier Dragan, DO, FACP CPT-84913 Ofc Vst, Est Level IV 10:00:09 ADMINISTRATIVE OFFICE MANAGER Radha Collier Dragan, DO, FACP CPT-41828 Ofc Vst, Est Level III 16:29:13 CDT Radha Collier Dragan, DO, FACP CPT-02553 Ofc Vst, Est Level III 12:09:22 CDT Radha Kisha Collier Dragan, DO, FACP CPT-57769 Ofc Vst, Est Level III 16:07:26 CDT Radha Kisha Álvarezner Radha Collier Dragan, DO, FACP CPT-64848 Ofc Vst, Est Level IV 16:44:16 ADMINISTRATIVE OFFICE MANAGER Radha Kisha Dragan [facility] CPT-19328 Ofc Vst, Est Level IV 10:11:36 ADMINISTRATIVE OFFICE MANAGER Radha Archibald [facility] CPT-58225 Ofc Vst, Est Level IV 10:48:17 CDT Radha Kisha Álvarezner [facility] [place] CPT-21970 Ofc Vst, Est Level IV 09:30:04 CDT Radha Kisha Archibald [facility] [place] CPT-99628 Ofc Vst, Est Level III 09:56:39 CDT Radha Kisha Archibald [facility] [place] CPT-53603 Ofc Vst, Est Level IV 09:50:35 ADMINISTRATIVE OFFICE MANAGER Radha Álvarezner [facility] [place] CPT-30756 Ofc Vst, Est Level IV 17:03:46 CDT Radha Kisha Álvarezner [facility] [place] CPT-99672 Ofc Vst, Est Level IV 19:02:53 CDT Radha Kisha Álvarezner [facility] [place] CPT-60766 Ofc Vst, Est Level II 17:46:16 ADMINISTRATIVE OFFICE MANAGER Radha Kelleyannrosaura ÁlvarezArchibald [facility] [place] CPT-38027 Ofc Vst, Est Level III 17:24:30 ADMINISTRATIVE OFFICE MANAGER Radha Archibald [facility] [place] CPT-05344 Ofc Vst, Est Level III 17:12:42 ADMINISTRATIVE OFFICE MANAGER Radha Álvarezner [facility] [place] CPT-52126 Ofc Vst, New Level III 17:25:48 CDT Radha Archibald [facility] [place] Procedures Code Procedure Name Date Entry Date Standard Description CPT-00850 Handling of specimen from office to lab 13:07:02 ADMINISTRATIVE OFFICE MANAGER CPT-11077 Preventive, Est, (40-64) 13:07:02 ADMINISTRATIVE OFFICE MANAGER CPT-27393 Handling of specimen from office to lab 20:21:28 ADMINISTRATIVE OFFICE MANAGER CPT-11088 Preventive, Est, (40-64) 20:21:28 ADMINISTRATIVE OFFICE MANAGER CPT-09793 Injection 12:59:52 ADMINISTRATIVE OFFICE MANAGER CPT-01799 Handling of specimen from office to lab 16:51:06 ADMINISTRATIVE OFFICE MANAGER CPT-59674 Preventive, Est, (40-64) 16:51:06 ADMINISTRATIVE OFFICE MANAGER CPT-11221 Handling of specimen from office to lab 12:56:15 CDT CPT-03318 Preventive, Est, (40-64) 12:56:15 CDT CPT-95878 Preventive, Est, (40-64) 11:45:03 CDT CPT-50391 Handling of specimen from office to lab 11:45:03 CDT CPT-73270 Preventive, Est, (40-64) 10:34:08 CDT CPT-97377 Handling of specimen from office to lab 10:34:08 CDT CPT-39159 EKG w/ Interpretation 16:24:52 CDT CPT-22557 Preventive, Est, (40-64) 16:09:59 CDT CPT-75759 Handling of specimen from office to lab 16:02:29 CDT CPT-55985 Handling of specimen from office to lab 16:29:13 CDT CPT-55304 Injection 12:09:22 CDT
--- OUTSIDE RECORDS SUMMARY | 2017-04-26 11:46 | XMS REPORT ---
Author Author ANA KIM [facility] Address [address] [place] [address] Care Team Providers Care Oceanographic Meteorologist Name Role Phone ANA KIM Unavailable PROBLEMS Type Condition ICD9-CM Code ZSO00-MU Code Onset Dates Condition Status SNOMED Code Problem Dysthymic disorder F34.1 Active 06395647 Problem Generalized anxiety disorder F41.1 Active 745513104 ALLERGIES Unknown Allergies SOCIAL HISTORY No smoking Hx information available PLAN OF CARE Activity Details Follow Up 4 Weeks Reason: Follow-up VITAL SIGNS MEDICATIONS Unknown Medications RESULTS No Results PROCEDURES Procedure Date Ordered Related Diagnosis Body Site Psychotherapy, patient &/family, 45 minutes, established patient Jun 01, 2016 IMMUNIZATIONS No Known Immunizations
--- OUTSIDE RECORDS SUMMARY | 2017-04-26 11:47 | XMS REPORT ---
Author ANA Duque eClinicalWorks Address Unknown Phone Unavailable Care Team Providers Care Focusing Machine Operator Name Role Phone ANA KIM Unavailable Allergies No Known Allergies Problems Problem Type Condition Code Onset Dates Condition Status Problem Generalized anxiety disorder F41.1 Active Assessment Dysthymic disorder F34.1 Active Problem Dysthymic disorder F34.1 Active Assessment Generalized anxiety disorder F41.1 Active Medications No Known Medications Procedures Procedure Coding System Code Date Psychotherapy, patient &/family, 45 minutes, established patient CPT-4 89182 Mar 27, 2015 Results No Known Results Summary Purpose eClinicalWorks Submission
--- OUTSIDE RECORDS SUMMARY | 2017-04-26 11:49 | XMS REPORT | Clinical Summary ---
Author Author User, CYNDI Organization Formerly [facility] Address Unknown Phone Unavailable Allergies, Adverse Reactions, [...] Tobacco use disorder DEPRESSION 311 Active Radha Archibald Depressive disorder, not elsewhere classified INSOMNIA, CHRONIC [...] 500 MG TAB 1 PO QD LEVOFLOXACIN 67637460290 No Longer Active Radha Archibald PREDNISONE 10 MG TAB 4 PO at one time for 2 days, then 2 PO at one time for 3 days, then 1 PO daily for 4 days. PREDNISONE 20444546682 No Longer Active Radha Archibald BIAXIN 500 MG TAB 1 PO BID CLARITHROMYCIN 68508561749 No Longer Active Radha Archibald LEVOTHYROXINE SODIUM 125 MCG TABS 1 PO daily LEVOTHYROXINE SODIUM 82276250531 Active Sylvia Kahn PRILOSEC 20 MG CPDR 1 PO BID OMEPRAZOLE 43379936513 Active Radha Archibald VERAMYST 27.5 MCG/SPRAY SUSP 2 puffs each nostril daily FLUTICASONE FUROATE 00230724998 No Longer Active Radha Archibald NASALCROM 5.2 MG/ACT AERS 2 puffs each nostril prn CROMOLYN SODIUM 95078376034 No Longer Active Radhachristiano Archibald MIRALAX POWD 1 scoop in 4oz of water PO daily prn POLYETHYLENE GLYCOL 3350 01533633036 No Longer Active Radha Kisha Archibald PEPCID 20 MG TABS 1 PO daily FAMOTIDINE 17477575567 No Longer Active Radha Kisha Archibald WELLBUTRIN 75 MG TABS 1 PO TID BUPROPION HCL 13201220687 No Longer Active Radha Kisha Archibald AMBIEN 5 MG TABS 1 PO QHS ZOLPIDEM TARTRATE 24812872449 Active Sylvia Kahn NITROSTAT 0.4 MG SL TAB 1 pill under tongue prn chest pain. 11/08 NITROGLYCERIN 53685667708 No Longer Active Radha Kisha Archibadl CLOBETASOL PROPIONATE 0.05 % FOAM Apply to affected scalp daily CLOBETASOL PROPIONATE 20391814742 No Longer Active Radha Kisha Archibald LYRICA 75 MG CAPS 1 PO BID PREGABALIN 83762939253 Active Sylvia Kahn ATARAX 25 MG TAB 1 PO Q4 hours prn itching HYDROXYZINE HCL No Longer Active Radhachristiano Archibald PREDNISONE 20 MG TAB 3 pills daily at once for 3 days, 2 pills daily at once for 3 days, 1 once daily for 3 days PREDNISONE 66372739205 No Longer Active Radhachristiano Archibald EFFEXOR XR 150 MG [id number] 1 PO daily VENLAFAXINE HCL 81318150020 Active Sylvia Kahn BACTROBAN 2 % CREAM Apply to affected area TID MUPIROCIN CALCIUM 20538858252 No Longer Active Radhachristiano Archibald DOXYCYCLINE HYCLATE 100 MG CAP 1 po BID DOXYCYCLINE HYCLATE 09706147330 No Longer Active Radha Kisha Archibald PRISTIQ 50 MG [id number] 1 PO daily DESVENLAFAXINE SUCCINATE 17968817721 No Longer Active Radha Kisha Archibald PREDNISONE 20 MG TAB 2 pills at once for 2 days then 1 pill daily for 2 days PREDNISONE 79223183294 No Longer Active Radha Kisha Archibald BIAXIN 500 MG TAB 1 PO BID CLARITHROMYCIN 88753202871 No Longer Active Radha Kisha Archibald QVAR 80 MCG/ACT AERS 2 puffs BID BECLOMETHASONE DIPROPIONATE 14733325298 No Longer Active Radha Kisha Archibald PULMICORT FLEXHALER 90 MCG/ACT AEPB 1 puff twice daily BUDESONIDE 65032028372 Active Sylvia Vivastis FLOVENT 110 MCG/ACT AEROSOL 1 puff BID prn FLUTICASONE PROPIONATE (INHAL) No Longer Active Radha Kisha Archibald PROAIR HFA 108 (90 BASE) MCG/ACT AERS 2 puff Q4 hrs prn wheezing ALBUTEROL SULFATE 77623418922 Active Radha Kisha Archibald TESSALON 200 MG CAPS 1 PO TID prn cough BENZONATATE 14431182628 No Longer Active Radha Kisha Archibald PREDNISONE 20 MG TAB 2 pills at once for 2 days then 1 pill daily for 2 days PREDNISONE 25719035734 No Longer Active Radha Kisha Archibald BIAXIN 500 MG TAB 1 PO BID CLARITHROMYCIN 65651917533 No Longer Active Radha Kisha Archibald TESSALON 200 MG CAPS 1 PO TID prn cough BENZONATATE 72752982945 No Longer Active Radha Kisha Archibald BIAXIN XL PAC 500 MG TB24 2 pills at same time daily for 7 days CLARITHROMYCIN 59397352829 No Longer Active Radha Kisha Archibald PRISTIQ 50 MG [id number] 1 PO daily DESVENLAFAXINE SUCCINATE 55492014954 No Longer Active Radhachristiano Archibald WELLBUTRIN 75 MG TABS 1 PO daily for 1 week then 1 PO every other day for 1 week then stop and go on Cymbalta 30mg daily. BUPROPION HCL 04130856548 No Longer Active Radha Archibald CYMBALTA 30 MG CPEP 1 PO daily DULOXETINE HCL 49444908049 No Longer Active Radhachristiano Archibald PREDNISONE 20 MG TAB 3 pills daily at once for 3 days, 2 pills daily at once for 4 days, 1 once daily for 3 days PREDNISONE 09169982581 No Longer Active Radhachristiano Archibald CYMBALTA 60 MG CPEP 1 PO Daily DULOXETINE HCL 79136002790 No Longer Active Radhachristiano Archibald DIFLUCAN 150 MG TAB 1 PO QD once FLUCONAZOLE 44141608689 No Longer Active Radhachristiano Archibald LUXIQ 0.12 % FOAM Apply to affected area on scalp daily prn BETAMETHASONE VALERATE 46772077261 No Longer Active Sylvia Kahn CYMBALTA 30 MG CPEP 1 PO Daily for 7 days then change to 60mg Daily DULOXETINE HCL 89655797032 No Longer Active Radha Archibald NAHEED 60 MG CAP 1 PO BID FEXOFENADINE HCL No Longer Active Radhachristiano Archibald NAHEED 180 MG TABS 1 PO QD FEXOFENADINE HCL 15729916128 Active Radhachristiano Archibald VITAMIN D 1000 UNIT TABS 1 PO Daily CHOLECALCIFEROL 39666187387 Active Radhachristiano Archibald TRAMADOL HCL 50 MG TABS 1-2 PO Q6hrs prn pain not to exceed 8 pills a day TRAMADOL HCL 48868180824 Active Radhachristiano Archibald XANAX 0.25 MG TABS 1 PO Q6hrs prn ALPRAZOLAM 69183282311 Active Radha Kisha Archibald DICYCLOMINE HCL 20 MG TABS 1 PO QID DICYCLOMINE HCL 11412715790 Active Radha Kisha Archibald VITAMIN C 500 MG TAB 1 PO daily ASCORBIC ACID 13752586006 Active Radha Kisha Archibald XANAX 0.25 MG TABS 1-2 q 6 hrs. prn ALPRAZOLAM 00437725028 No Longer Active Radha Kisha Archibald FLOVENT HFA 110 MCG/ACT AERO 1 puff twice daily prn FLUTICASONE PROPIONATE HFA 27956032597 No Longer Active Radha Kisha Archibald KENALOG 0.1 % CREA apply bid to affected areas no longer than 7 days in a row TRIAMCINOLONE ACETONIDE 43698724314 No Longer Active Radha Kisha Archibald NASONEX 50 MCG/ACT SUSP 2 puffs QD prn MOMETASONE FUROATE 11305622273 No Longer Active Radha Kisha Archibald LORTAB 5 5-500 MG TABS 1 to 2 PO Q6hrs prn ACETAMINOPHEN-HYDROCODONE 39743384543 No Longer Active Radha Kisha Archibald PREDNISONE 20 MG TAB 3 PO daily for 1 days, 2 PO daily for 2 days then 1 PO daily for 2 days PREDNISONE 01768766552 No Longer Active Radha Kisha Archibald TESSALON 200 MG CAPS 1 PO TID prn BENZONATATE 56393993397 No Longer Active Radha Kisha Archibald ROBITUSSIN A-C 10-100 MG/5ML SYRUP 1 teaspoon PO Q 4-6 hr prn ROBITUSSIN A-C 10-100 MG/5ML SYRUP 60377948947 No Longer Active Radha Kisha Archibald BIAXIN XL PAC 500 MG TB24 2 pills at same time daily for 7 days CLARITHROMYCIN 30598690508 No Longer Active Rahda Kisha Archibald LYRICA 75 MG CAPS 1 PO BID PREGABALIN 27994794208 No Longer Active Radhachristiano Archibald PREDNISONE 20 MG TAB 3 PO daily for 1 days, 2 PO daily for 2 days then 1 PO daily for 2 days PREDNISONE 38879425197 No Longer Active Radhachristiano Archibald TRIAMCINOLONE ACETONIDE 0.1 % OINT apply very small amount on q-tip to right lower eyel id area BID for 7 days TRIAMCINOLONE ACETONIDE 39438433689 No Longer Active Radhachristiano Archibald CILOXAN 0.3 % SOLN 2 drops right eye TID for 7 days CIPROFLOXACIN HCL 19471121300 No Longer Active Radhachristiano Archibald CHANTIX 1 MG TABS 1 po BID VARENICLINE TARTRATE 40594082048 No Longer Active Radhachristiano Archibald LIDOCAINE VISCOUS 2 % SOLN 1/2 teaspoon gargle Q 2 hrs prn 05/24 LIDOCAINE HCL 08959816876 No Longer Active Radhachristiano Archibald DIFLUCAN 150 MG TAB 1 PO QD FOR 3 DAYS FLUCONAZOLE 96490238229 No Longer Active Adryan Lawrence TERAZOL 7 0.4 % CREA 1 applicator full per vagina QHS for 7 days TERCONAZOLE VAGINAL 20257882018 No Longer Active Adryan Lawrence LOTRISONE 0.05-1 % CREAM apply to affected areas BID for 7 days CLOTRIMAZOLE-BETAMETHASONE 00945632731 No Longer Active Radhachristiano Archibald BIAXIN 500 MG TAB 1 PO BID for 7 days CLARITHROMYCIN 52021481758 No Longer Active Radhachristiano Archibald PREDNISONE 20 MG TAB 3 PO daily for 2 days, 2 PO daily for 2 days, 1 PO daily for 2 days PREDNISONE 25570791315 No Longer Active Radha Kisha Archibald CODICLEAR DH 5-100 MG/5ML SYRP 5 cc Po Q4-6prn HYDROCODONE-GUAIFENESIN 76250857196 No Longer Active Radha Kisha Archibald AUGMENTIN 875-125 MG TAB 1 PO BID AMOXICILLIN-POT CLAVULANATE 95864786375 No Longer Active Radha Kisha Archibald NEXIUM 40 MG CPDR 1 PO daily ESOMEPRAZOLE MAGNESIUM 85825974150 No Longer Active Radha Kisha Archibald WELLBUTRIN XL 150 MG TB24 1 PO daily BUPROPION HCL 70793917185 No Longer Active Radha Kisha Archibald FLOVENT 220 MCG/ACT AERO 1 puff BID for 7 days FLUTICASONE PROPIONATE (INHAL) 33816690951 No Longer Active Radha Kisha Archibald NEURONTIN 100 MG CAP 1 PO QHS GABAPENTIN 97162338675 No Longer Active Radha Kisha Archibald CILOXAN 0.3 % OINT 1/2 inch ribbon to right eye TID x 1 week 2003 CIPROFLOXACIN HCL 57407951116 No Longer Active Radha Kisha Archibald TYLENOL/CODEINE #3 300-30 MG TABS 1 po Q 4-6 hrs. prn pain 03/17 ACETAMINOPHEN-CODEINE 43868705359 No Longer Active Radha Kisha Archibald SOMA 350 MG TABS 1 po TID prn CARISOPRODOL 94483945344 No Longer Active Radha Kisha Archibald CLARINEX 5 MG TABS 1 po daily DESLORATADINE 33922827678 No Longer Active Radha Kisha Archibald Immunizations Vaccine Administration Date Value [...] Weight Measured blood pressure, diastolic - 8462-4 80 mm[Hg] BP hodge blood pressure, systolic - 8480-6 128 mm[Hg] BP sys pulse rate E&M - 8867-4 74 /min Heart rate respiratory rate E&M - 9279-1 14 /min Resp rate Diagnostic Results Date Name Value Unit Range Description Clinical Lists Update: CBC,CMP,FLP,TSH,Free T4 - Chemistry triglyceride, serum, fasting 84 mg/dL Estimated Glomerular Filtration Rate (calc) >60 mL/min/1.73m2 potassium, serum 4.2 mmol/L urea nitrogen, blood 11 mg/dL glucose, plasma fasting 98 mg/dL calcium, serum 9.3 mg/dL protein, total, serum 6.9 g/dL chloride, serum 104 mmol/L sodium, serum 141 mmol/L cholesterol, serum 221 mg/dL aspartate aminotransferase (SGOT), serum 43 U/L carbon dioxide, venous blood 28 mmol/L albumin, serum 4.0 g/dL creatinine, serum 0.81 mg/dL alanine aminotransferase (SGPT), serum 64 U/L thyroxine, serum, free 1.17 ng/dL very low density lipoproteins 17 mg/dL HDL cholesterol, serum 68 mg/dL bilirubin, serum, total 0.5 mg/dL thyroid stimulating hormone, serum 1.94 u[iU]/mL LDL cholesterol, serum 132 mg/dL alkaline phosphatase, serum 83 U/L Clinical Lists Update: CMP,FLP,TSH,Free T4 - Chemistry alkaline phosphatase, serum 88 U/L urea nitrogen, [...] mmol/L very low density lipoproteins 19 mg/dL glucose, plasma fasting 100 mg/dL Estimated Glomerular Filtration Rate (calc) >60 mL/min/1.73m2 albumin, serum 4.0 g/dL Clinical Lists Update: UA - Urinalysis blood in urine (hemoglobin) by dipstick neg protein, urine, semiquantitative (dipstick) neg epithelial cells, urine 2-5 /[LPF] hyaline casts, urine none /[LPF] bacteria, urine microscopy trace RBC urine by microscopy none WBC urine on microscopy 2-5 {Cells}/[HPF] appearance, urine Clear Yellow urobilinogen, urine, semiquantitative (dipstick) normal specific gravity, urine 1.010 pH, urine, semiquantitative 6 nitrite, urine, semiquantitative neg ketones, urine, by test strip neg bilirubin, urine neg glucose, urine, semiquantitative neg mucus on urinalysis neg Encounters Code Encounter Date Provider Facility CPT-67674 Ofc Vst, Est Level IV 14:29:57 CDT Radha [facility] CPT-46652 Ofc Vst, Est Level IV 17:11:25 CDT Radha Kisha [facility] CPT-23237 Ofc Vst, Est Level III 17:34:21 PLUMBING CONTRACTOR Radha Archibald [facility] CPT-50188 Ofc Vst, Est Level IV 19:46:53 CDT Radha Kisha Collier Archibald, DO, FACP CPT-92035 Ofc Vst, Est Level III 21:26:57 CDT Radhachristiano Collier Dragan, DO, FACP CPT-34473 Ofc Vst, Est Level III 21:40:05 PLUMBING CONTRACTOR Radha Collier Dragan, DO, FACP CPT-33918 Ofc Vst, Est Level III 11:54:44 CDT Radhachristiano Collier Dragan, DO, FACP CPT-48476 Ofc Vst, Est Level III 12:59:52 PLUMBING CONTRACTOR Radha Collier Dragan, DO, FACP CPT-60085 Ofc Vst, Est Level III 14:13:57 CDT Radhachristiano Collier Dragan, DO, FACP CPT-09103 Ofc Vst, Est Level IV 15:12:56 CDT Radhachristiano Archibald [facility] CPT-81246 Ofc Vst, Est Level IV 10:49:43 CDT Radhachristiano Collier Dragan, DO, FACP CPT-39592 Ofc Vst, Est Level IV 15:49:18 CDT Radhachristiano Collier Dragan, DO, FACP CPT-31937 Ofc Vst, Est Level IV 10:47:30 PLUMBING CONTRACTOR Radha Collier Dragan, DO, FACP CPT-02374 Ofc Vst, Est Level III 15:05:01 PLUMBING CONTRACTOR Radha Collier Dragan, DO, FACP CPT-34334 Ofc Vst, Est Level IV 15:14:17 CDT Radhachristiano Archibald [facility] CPT-86147 Ofc Vst, Est Level IV 16:12:25 CDT Radhachristiano Collier Dragan, DO, FACP CPT-58429 Office Consult, Level IV 11:08:13 PLUMBING CONTRACTOR Radha Collier Dragan, DO, FACP CPT-65168 Ofc Vst, Est Level IV 09:39:05 CDT Radha Kisha Collier Dragan, DO, FACP CPT-77041 Ofc Vst, Est Level IV 09:46:15 CDT Radhachristiano Collier Dragan, DO, FACP CPT-74815 Ofc Vst, Est Level V 09:27:49 CDT Radha Collier Dragan, DO, FACP CPT-34763 Ofc Vst, Est Level V 16:56:13 CDT Radhachristiano Archibald [facility] CPT-89504 Ofc Vst, Est Level V 16:24:52 CDT Radhachristiano Collier Dragan, DO, FACP CPT-27945 Ofc Vst, Est Level IV 15:51:57 CDT Radhachristiano Collier Dragan, DO, FACP CPT-70655 Ofc Vst, Est Level III 14:02:43 CDT Radhachristiano Collier Dragan, DO, FACP CPT-86142 Ofc Vst, Est Level III 09:45:54 CDT Radha Kisha Collier Dragan, DO, FACP CPT-34916 Ofc Vst, Est Level III 12:11:16 CDT Radha Collier Dragan, DO, FACP CPT-77988 Ofc Vst, Est Level IV 14:28:01 PLUMBING CONTRACTOR Radha Kisha Collier Dragan, DO, FACP CPT-95486 Ofc Vst, Est Level IV 13:04:53 PLUMBING CONTRACTOR Radha Kisha Dragan Archibald, DO, FACP CPT-30724 Ofc Vst, Est Level III 09:53:23 PLUMBING CONTRACTOR Radha Kisha Dragan Archibald, DO, FACP CPT-24572 Ofc Vst, Est Level IV 10:00:09 PLUMBING CONTRACTOR Radha Kisha Dragan Archibald, DO, FACP CPT-63778 Ofc Vst, Est Level III 16:29:13 CDT Radha Kisha Dragan Archibald, DO, FACP CPT-84654 Ofc Vst, Est Level III 12:09:22 CDT Radha Kisha Dragan Archibald, DO, FACP CPT-89326 Ofc Vst, Est Level III 16:07:26 CDT Radha Kisha Dragan Archibald, DO, FACP CPT-63045 Ofc Vst, Est Level IV 16:44:16 PLUMBING CONTRACTOR Radha Archibald [facility] CPT-64530 Ofc Vst, Est Level IV 10:11:36 PLUMBING CONTRACTOR Radha Archibald [facility] CPT-47241 Ofc Vst, Est Level IV 10:48:[address] [facility] [place] CPT-34330 Ofc Vst, Est Level IV 09:30:04 CDT Radhachristiano Archibald [facility] CPT-59866 Ofc Vst, Est Level III 09:56:39 CDT Radhachristiano Archibald [facility] CPT-22651 Ofc Vst, Est Level IV 09:50:35 PLUMBING CONTRACTOR Radha Archibald [facility] CPT-32127 Ofc Vst, Est Level IV 17:03:46 CDT Radha Archibald [facility] [place] [facility] CPT-58296 Ofc Vst, Est Level IV 19:02:53 CDT Radhachristiano Archibald [facility] CPT-99050 Ofc Vst, Est Level II 17:46:16 PLUMBING CONTRACTOR Radhachristiano Archibald [facility] [place] CPT-86483 Ofc Vst, Est Level III 17:24:30 PLUMBING CONTRACTOR Radha Archibald [facility] [place] CPT-09288 Ofc Vst, Est Level III 17:12:42 PLUMBING CONTRACTOR Radha Kisha Archibald [facility] [place] CPT-87316 Ofc Vst, New Level III 17:25:48 CDT [facility] Kisha Archibald [facility] Procedures Code Procedure Name Date Entry Date Standard Description CPT-56800 Handling of specimen from office to lab 13:07:02 PLUMBING CONTRACTOR CPT-78579 Preventive, Est, (40-64) 13:07:02 PLUMBING CONTRACTOR CPT-76549 Handling of specimen from office to lab 20:21:28 PLUMBING CONTRACTOR CPT-14519 Preventive, Est, (40-64) 20:21:28 PLUMBING CONTRACTOR CPT-91211 Injection 12:59:52 PLUMBING CONTRACTOR CPT-42753 Handling of specimen from office to lab 16:51:06 PLUMBING CONTRACTOR CPT-16357 Preventive, Est, (40-64) 16:51:06 PLUMBING CONTRACTOR CPT-03177 Handling of specimen from office to lab 12:56:15 CDT CPT-42489 Preventive, Est, (40-64) 12:56:15 CDT CPT-28395 Preventive, Est, (40-64) 11:45:03 CDT CPT-07775 Handling of specimen from office to lab 11:45:03 CDT CPT-42160 Preventive, Est, (40-64) 10:34:08 CDT CPT-15846 Handling of specimen from office to lab 10:34:08 CDT CPT-44131 EKG w/ Interpretation 16:24:52 CDT CPT-11369 Preventive, Est, (40-64) 16:09:59 CDT CPT-09530 Handling of specimen from office to lab 16:02:29 CDT CPT-61010 Handling of specimen from office to lab 16:29:13 CDT CPT-16129 Injection 12:09:22 CDT
--- OUTSIDE RECORDS SUMMARY | 2017-04-26 11:49 | XMS REPORT ---
Author ANA Duque [employer] Address Unknown Phone Unavailable Care Team Providers Care Mat Inspector Name Role Phone ANA KIM Unavailable Allergies No Known Allergies Problems Problem Type Condition Code Onset Dates Condition Status Problem Generalized anxiety disorder F41.1 Active Assessment Dysthymic disorder F34.1 Active Problem Dysthymic disorder F34.1 Active Assessment Generalized anxiety disorder F41.1 Active Medications No Known Medications Procedures Procedure Coding System Code Date Psychotherapy, patient &/family, 45 minutes, established patient CPT-4 70233 May 29, 2015 Results No Known Results Summary Purpose eClinicalWorks Submission
--- OUTSIDE RECORDS SUMMARY | 2017-04-26 11:49 | XMS REPORT ---
Author ANA Duque [employer] Address Unknown Phone Unavailable Care Team Providers Care Wood Miller Name Role Phone ANA KIM Unavailable Allergies No Known Allergies Problems Problem Type Condition Code Onset Dates Condition Status Problem Generalized anxiety disorder F41.1 Active Assessment Dysthymic disorder F34.1 Active Problem Dysthymic disorder F34.1 Active Assessment Generalized anxiety disorder F41.1 Active Medications No Known Medications Procedures Procedure Coding System Code Date Psychotherapy, patient &/family, 45 minutes, established patient CPT-4 58667 Feb 25, 2015 Results No Known Results Summary Purpose eClinicalWorks Submission
--- OUTSIDE RECORDS SUMMARY | 2017-04-26 11:49 | XMS REPORT ---
Author ANA Duque [employer] Address Unknown Phone Unavailable Care Team Providers Care Fine Wire Drawer Name Role Phone ANA KIM Unavailable Allergies No Known Allergies Problems Problem Type Condition Code Onset Dates Condition Status Problem Generalized anxiety disorder F41.1 Active Assessment Dysthymic disorder F34.1 Active Problem Dysthymic disorder F34.1 Active Assessment Generalized anxiety disorder F41.1 Active Medications No Known Medications Procedures Procedure Coding System Code Date Psychotherapy, patient &/family, 45 minutes, established patient CPT-4 94667 Feb 26, 2016 Results No Known Results Summary Purpose eClinicalWorks Submission
--- OUTSIDE RECORDS SUMMARY | 2017-04-26 11:50 | XMS REPORT ---
Author ANA Duque [employer] Address Unknown Phone Unavailable Care Team Providers Care Script Reader Name Role Phone ANA KIM Unavailable Allergies No Known Allergies Problems Problem Type Condition Code Onset Dates Condition Status Problem Generalized anxiety disorder F41.1 Active Assessment Dysthymic disorder F34.1 Active Problem Dysthymic disorder F34.1 Active Assessment Generalized anxiety disorder F41.1 Active Medications No Known Medications Procedures Procedure Coding System Code Date Psychotherapy, patient &/family, 45 minutes, established patient CPT-4 46453 Apr 01, 2016 Results No Known Results Summary Purpose eClinicalWorks Submission
--- OUTSIDE RECORDS SUMMARY | 2017-04-26 11:50 | XMS REPORT ---
Author Author ANA KIM Organization [employer] Address Unknown Phone Unavailable Care Team Providers Care Clam Bed Worker Name Role Phone ANA KMI CP Unavailable Allergies No Known Allergies Problems Problem Type Condition ICD-9 Code Onset Dates Condition Status Problem Major depressive disorder, recurrent episode, severe, without mention of psychotic behavior 296.33 Active Assessment Major depressive disorder, recurrent episode, mild 296.31 Active Problem Major depressive disorder, recurrent episode, mild 296.31 Active Assessment Generalized anxiety disorder 300.02 Active Medications No Known Medications Procedures Procedure Coding System Code Date Psychotherapy, patient &/family, 45 minutes, established patient CPT-4 69413 Jan 22, 2015 Results No Known Results Summary Purpose eClinicalWorks Submission
--- OUTSIDE RECORDS SUMMARY | 2017-04-26 11:50 | XMS REPORT ---
Author ANA Duque [employer] Address Unknown Phone Unavailable Care Team Providers Care Electric Motor Assembler Name Role Phone ANA KIM Unavailable Allergies No Known Allergies Problems Problem Type Condition Code Onset Dates Condition Status Problem Generalized anxiety disorder F41.1 Active Assessment Dysthymic disorder F34.1 Active Problem Dysthymic disorder F34.1 Active Assessment Generalized anxiety disorder F41.1 Active Medications No Known Medications Procedures Procedure Coding System Code Date Psychotherapy, patient &/family, 45 minutes, established patient CPT-4 04406 September 03, 2015 Results No Known Results Summary Purpose eClinicalWorks Submission
--- OUTSIDE RECORDS SUMMARY | 2017-04-26 11:50 | XMS REPORT ---
Author ANA Duque [employer] Address Unknown Phone Unavailable Care Team Providers Care City Controller Name Role Phone ANA KIM Unavailable Allergies No Known Allergies Problems Problem Type Condition Code Onset Dates Condition Status Problem Generalized anxiety disorder F41.1 Active Assessment Dysthymic disorder F34.1 Active Problem Dysthymic disorder F34.1 Active Assessment Generalized anxiety disorder F41.1 Active Medications No Known Medications Procedures Procedure Coding System Code Date Psychotherapy, patient &/family, 45 minutes, established patient CPT-4 63792 October 30, 2015 Results No Known Results Summary Purpose eClinicalWorks Submission
--- OUTSIDE RECORDS SUMMARY | 2017-04-26 11:50 | XMS REPORT ---
Author ANA Duque [employer] Address Unknown Phone Unavailable Care Team Providers Care Motion Picture Operator Name Role Phone ANA KIM Unavailable Allergies No Known Allergies Problems Problem Type Condition Code Onset Dates Condition Status Problem Generalized anxiety disorder F41.1 Active Assessment Dysthymic disorder F34.1 Active Problem Dysthymic disorder F34.1 Active Assessment Generalized anxiety disorder F41.1 Active Medications No Known Medications Procedures Procedure Coding System Code Date Psychotherapy, patient &/family, 45 minutes, established patient CPT-4 51238 Jan 01, 2016 Results No Known Results Summary Purpose eClinicalWorks Submission
--- OUTSIDE RECORDS SUMMARY | 2017-04-26 11:50 | XMS REPORT | Clinical Summary ---
Author Author User, CYNDI Organization [facility] [place] Address Unknown Phone Unavailable Allergies, Adverse Reactions, [...] 500 MG TAB 1 PO QD LEVOFLOXACIN [id number] No Longer Active Radha Archibald PREDNISONE 10 MG TAB 4 PO at one time for 2 days, then 2 PO at one time for 3 days, then 1 PO daily for 4 days. PREDNISONE 63612806860 No Longer Active Radha Archibald BIAXIN 500 MG TAB 1 PO BID CLARITHROMYCIN 55910492563 No Longer Active Radha Archibald LEVOTHYROXINE SODIUM 125 MCG TABS 1 PO daily LEVOTHYROXINE SODIUM 43377576463 Active Sylvia Kahn PRILOSEC 20 MG CPDR 1 PO BID OMEPRAZOLE 91360855005 Active Sylvia Kanh VERAMYST 27.5 MCG/SPRAY SUSP 2 puffs each nostril daily FLUTICASONE FUROATE 58777855203 No Longer Active Radha Archibald NASALCROM 5.2 MG/ACT AERS 2 puffs each nostril prn CROMOLYN SODIUM 24734881093 No Longer Active Radhachristiano Archibald MIRALAX POWD 1 scoop in 4oz of water PO daily prn POLYETHYLENE GLYCOL 3350 08393607116 No Longer Active Radha Kisha Archibald PEPCID 20 MG TABS 1 PO daily FAMOTIDINE 67823469386 No Longer Active Radha Kisha Archibald WELLBUTRIN 75 MG TABS 1 PO TID BUPROPION HCL 48009536114 No Longer Active Radha Kisha Archibald AMBIEN 5 MG TABS 1 PO QHS ZOLPIDEM TARTRATE 03415236914 Active Sylvia Kahn NITROSTAT 0.4 MG SL TAB 1 pill under tongue prn chest pain. 11/08 NITROGLYCERIN 35633016751 No Longer Active Radha Kisha Archibald CLOBETASOL PROPIONATE 0.05 % FOAM Apply to affected scalp daily CLOBETASOL PROPIONATE 15999013954 No Longer Active Radha Kisha Archibald LYRICA 75 MG CAPS 1 PO BID PREGABALIN 19578350216 Active Sylvia Kahn ATARAX 25 MG TAB 1 PO Q4 hours prn itching HYDROXYZINE HCL No Longer Active Radhachristiano Archibald PREDNISONE 20 MG TAB 3 pills daily at once for 3 days, 2 pills daily at once for 3 days, 1 once daily for 3 days PREDNISONE 60769776787 No Longer Active Radhachristiano Archibald EFFEXOR XR 150 MG [id number] 1 PO daily VENLAFAXINE HCL 03639084097 Active Sylvia Kahn BACTROBAN 2 % CREAM Apply to affected area TID MUPIROCIN CALCIUM 16530121417 No Longer Active Radhachristiano Archibald DOXYCYCLINE HYCLATE 100 MG CAP 1 po BID DOXYCYCLINE HYCLATE 66949538645 No Longer Active Radhachristiano Archibald PRISTIQ 50 MG [id number] 1 PO daily DESVENLAFAXINE SUCCINATE 57234479255 No Longer Active Radha Kisha Archibald PREDNISONE 20 MG TAB 2 pills at once for 2 days then 1 pill daily for 2 days PREDNISONE 78420840495 No Longer Active Radha Kisha Archibald BIAXIN 500 MG TAB 1 PO BID CLARITHROMYCIN 59215039433 No Longer Active Radha Kisha Archibald QVAR 80 MCG/ACT AERS 2 puffs BID BECLOMETHASONE DIPROPIONATE 66321855842 No Longer Active Radha Kisha Archibald PULMICORT FLEXHALER 90 MCG/ACT AEPB 1 puff twice daily BUDESONIDE 35027602138 Active Sylviavinnie Vivastis FLOVENT 110 MCG/ACT AEROSOL 1 puff BID prn FLUTICASONE PROPIONATE (INHAL) No Longer Active Radha Kisha Archibald PROAIR HFA 108 (90 BASE) MCG/ACT AERS 2 puff Q4 hrs prn wheezing ALBUTEROL SULFATE 83626133265 Active Radha Kisha Archibald TESSALON 200 MG CAPS 1 PO TID prn cough BENZONATATE 69388134675 No Longer Active Radha Kisha Archibald PREDNISONE 20 MG TAB 2 pills at once for 2 days then 1 pill daily for 2 days PREDNISONE 43501872849 No Longer Active Radha Kisha Archibald BIAXIN 500 MG TAB 1 PO BID CLARITHROMYCIN 01228900918 No Longer Active Radha Kisha Archibald TESSALON 200 MG CAPS 1 PO TID prn cough BENZONATATE 00949296189 No Longer Active Radha Kisha Archibald BIAXIN XL PAC 500 MG TB24 2 pills at same time daily for 7 days CLARITHROMYCIN 83534089374 No Longer Active Radha Kisha Archibald PRISTIQ 50 MG [id number] 1 PO daily DESVENLAFAXINE SUCCINATE 90575574471 No Longer Active Radhachristiano Archibald WELLBUTRIN 75 MG TABS 1 PO daily for 1 week then 1 PO every other day for 1 week then stop and go on Cymbalta 30mg daily. BUPROPION HCL 83897028165 No Longer Active Radhachristiano Archibald CYMBALTA 30 MG CPEP 1 PO daily DULOXETINE HCL 21984279288 No Longer Active Radha Kisha Archibald PREDNISONE 20 MG TAB 3 pills daily at once for 3 days, 2 pills daily at once for 4 days, 1 once daily for 3 days PREDNISONE 15203356793 No Longer Active Radhachristiano Archibald CYMBALTA 60 MG CPEP 1 PO Daily DULOXETINE HCL 82824833729 No Longer Active Radhachristiano Archibald DIFLUCAN 150 MG TAB 1 PO QD once FLUCONAZOLE 49633728434 No Longer Active Radhachristiano Archibald LUXIQ 0.12 % FOAM Apply to affected area on scalp daily prn BETAMETHASONE VALERATE 11656906885 No Longer Active Sylviavinnie Kahn CYMBALTA 30 MG CPEP 1 PO Daily for 7 days then change to 60mg Daily DULOXETINE HCL 80896302818 No Longer Active Radha Archibald NAHEED 60 MG CAP 1 PO BID FEXOFENADINE HCL No Longer Active Radhachristiano Archibald NAHEED 180 MG TABS 1 PO QD FEXOFENADINE HCL 32596579290 Active Radhachristiano Archibald VITAMIN D 1000 UNIT TABS 1 PO Daily CHOLECALCIFEROL 12206303174 Active Radhachristiano Archibald TRAMADOL HCL 50 MG TABS 1-2 PO Q6hrs prn pain not to exceed 8 pills a day TRAMADOL HCL 10649672382 Active Radhachristiano Archibald XANAX 0.25 MG TABS 1 PO Q6hrs prn ALPRAZOLAM 11667204233 Active Radha Kisha Archibald DICYCLOMINE HCL 20 MG TABS 1 PO QID DICYCLOMINE HCL 11237424020 Active Radha Kisha Archibald VITAMIN C 500 MG TAB 1 PO daily ASCORBIC ACID 28870036597 Active Radha Kisha Archibald XANAX 0.25 MG TABS 1-2 q 6 hrs. prn ALPRAZOLAM 12133041685 No Longer Active Radha Kisha Archibald FLOVENT HFA 110 MCG/ACT AERO 1 puff twice daily prn FLUTICASONE PROPIONATE HFA 68475723937 No Longer Active Radah Kisha Archibald KENALOG 0.1 % CREA apply bid to affected areas no longer than 7 days in a row TRIAMCINOLONE ACETONIDE 20434248954 No Longer Active Radha Kisha Archibald NASONEX 50 MCG/ACT SUSP 2 puffs QD prn MOMETASONE FUROATE 67125973822 No Longer Active Radha Kisha Archibald LORTAB 5 5-500 MG TABS 1 to 2 PO Q6hrs prn ACETAMINOPHEN-HYDROCODONE 25827713140 No Longer Active Radha Kisha Archibald PREDNISONE 20 MG TAB 3 PO daily for 1 days, 2 PO daily for 2 days then 1 PO daily for 2 days PREDNISONE 44934833231 No Longer Active Radha Kisha Archibald TESSALON 200 MG CAPS 1 PO TID prn BENZONATATE 62567780467 No Longer Active Radha Kisha Archibald ROBITUSSIN A-C 10-100 MG/5ML SYRUP 1 teaspoon PO Q 4-6 hr prn ROBITUSSIN A-C 10-100 MG/5ML SYRUP 25642596205 No Longer Active Radha Kisha Archibald BIAXIN XL PAC 500 MG TB24 2 pills at same time daily for 7 days CLARITHROMYCIN 03070652495 No Longer Active Radha Kisha Archibald LYRICA 75 MG CAPS 1 PO BID PREGABALIN 11521472667 No Longer Active Radha Archibald PREDNISONE 20 MG TAB 3 PO daily for 1 days, 2 PO daily for 2 days then 1 PO daily for 2 days PREDNISONE 84220292703 No Longer Active Radhachristiano Archibald TRIAMCINOLONE ACETONIDE 0.1 % OINT apply very small amount on q-tip to right lower eyel id area BID for 7 days TRIAMCINOLONE ACETONIDE 81204425021 No Longer Active Radhachristiano Archibald CILOXAN 0.3 % SOLN 2 drops right eye TID for 7 days CIPROFLOXACIN HCL 29103214579 No Longer Active Radhachristiano Archibald CHANTIX 1 MG TABS 1 po BID VARENICLINE TARTRATE 68189562725 No Longer Active Radahchristiano Archibald LIDOCAINE VISCOUS 2 % SOLN 1/2 teaspoon gargle Q 2 hrs prn 05/24 LIDOCAINE HCL 42180398260 No Longer Active Radha Archibald DIFLUCAN 150 MG TAB 1 PO QD FOR 3 DAYS FLUCONAZOLE 22306882475 No Longer Active Adryan Lawrence TERAZOL 7 0.4 % CREA 1 applicator full per vagina QHS for 7 days TERCONAZOLE VAGINAL 33650279628 No Longer Active Adryan Lawrence LOTRISONE 0.05-1 % CREAM apply to affected areas BID for 7 days CLOTRIMAZOLE-BETAMETHASONE 91299821605 No Longer Active Radhachristiano Archibald BIAXIN 500 MG TAB 1 PO BID for 7 days CLARITHROMYCIN 35637196070 No Longer Active Radhachristiano Archibald PREDNISONE 20 MG TAB 3 PO daily for 2 days, 2 PO daily for 2 days, 1 PO daily for 2 days PREDNISONE 46503419804 No Longer Active Radhachristiano Archibald CODICLEAR DH 5-100 MG/5ML SYRP 5 cc Po Q4-6prn HYDROCODONE-GUAIFENESIN 17879173314 No Longer Active Radha Kisha Archibald AUGMENTIN 875-125 MG TAB 1 PO BID AMOXICILLIN-POT CLAVULANATE 01797829251 No Longer Active Radha Kisha Archibald NEXIUM 40 MG CPDR 1 PO daily ESOMEPRAZOLE MAGNESIUM 64281711361 No Longer Active Radha Kisha Archibald WELLBUTRIN XL 150 MG TB24 1 PO daily BUPROPION HCL 72555777174 No Longer Active Radha Kisha Archibald FLOVENT 220 MCG/ACT AERO 1 puff BID for 7 days FLUTICASONE PROPIONATE (INHAL) 12982658282 No Longer Active Radha Kisha Archibald NEURONTIN 100 MG CAP 1 PO QHS GABAPENTIN 24422894317 No Longer Active Radha Kisha Archibald CILOXAN 0.3 % OINT 1/2 inch ribbon to right eye TID x 1 week 2003 CIPROFLOXACIN HCL 76206395793 No Longer Active Radha Kisha Archibald TYLENOL/CODEINE #3 300-30 MG TABS 1 po Q 4-6 hrs. prn pain 03/17 ACETAMINOPHEN-CODEINE 02531869128 No Longer Active Radha Kisha Archibald SOMA 350 MG TABS 1 po TID prn CARISOPRODOL 33855536163 No Longer Active Radha Kisha Archibald CLARINEX 5 MG TABS 1 po daily DESLORATADINE 84736192014 No Longer Active Radha Kisha Archibald Immunizations [...] mg/dL Encounters Code Encounter Date Provider Facility CPT-59367 Ofc Vst, Est Level IV 14:29:57 CDT Radha Kisha Archibald [facility] CPT-15904 Ofc Vst, Est Level IV 17:11:25 CDT Radha Kisha Archibald [facility] CPT-11156 Ofc Vst, Est Level III 17:34:21 TAKER AWAY [facility] Kisha Archibald [facility] CPT-96687 Ofc Vst, Est Level IV 19:46:53 CDT Radhachristiano Archibald, DO, FACP CPT-26101 Ofc Vst, Est Level III 21:26:57 CDT Radhachristiano Archibald, DO, FACP CPT-66513 Ofc Vst, Est Level III 21:40:05 TAKER AWAY Radah Archibald, DO, FACP CPT-86660 Ofc Vst, Est Level III 11:54:44 CDT Radhachristiano Archibald, DO, FACP CPT-93460 Ofc Vst, Est Level III 12:59:52 TAK[facility] AWAY Radha Archibald, DO, FACP CPT-59641 Ofc Vst, Est Level III 14:13:57 CDT Radhachristiano Archibald, DO, FACP CPT-35135 Ofc Vst, Est Level IV 15:12:56 CDT Radha Kisha Archibald [facility] CPT-72412 Ofc Vst, Est Level IV 10:49:43 CDT Radhachristiano Collier Dragan, DO, FACP CPT-06176 Ofc Vst, Est Level IV 15:49:18 CDT Radha Collier Dragan, DO, FACP CPT-28460 Ofc Vst, Est Level IV 10:47:30 TAKER AWAY Radha Collier Dragan, DO, FACP CPT-75904 Ofc Vst, Est Level III 15:05:01 TAKER AWAY Radha Collier Drgaan, DO, FACP CPT-15302 Ofc Vst, Est Level IV 15:14:17 CDT Radha Archibald [facility] CPT-18830 Ofc Vst, Est Level IV 16:12:25 CDT Radha Kisha Collier Dragan, DO, FACP CPT-54200 Office Consult, Level IV 11:08:13 TAKER AWAY Radha Collier Dragan, DO, FACP CPT-22884 Ofc Vst, Est Level IV 09:39:05 CDT Radhachristiano Collier Dragan, DO, FACP CPT-25789 Ofc Vst, Est Level IV 09:46:15 CDT Radhachristiano Collier Dragan, DO, FACP CPT-12196 Ofc Vst, Est Level V 09:27:49 CDT Radha Kisha Collier Dragan, DO, FACP CPT-45077 Ofc Vst, Est Level V 16:56:13 CDT Radha Archibald [facility] CPT-24150 Ofc Vst, Est Level V 16:24:52 CDT Radhachristiano Collier Dragan, DO, FACP CPT-03387 Ofc Vst, Est Level IV 15:51:57 CDT Radhachristiano Collier Archibald, DO, FACP CPT-08268 Ofc Vst, Est Level III 14:02:43 CDT Radha Collier Dragan, DO, FACP CPT-10788 Ofc Vst, Est Level III 09:45:54 CDT Radha Kisha Collier Dragan, DO, FACP CPT-83254 Ofc Vst, Est Level III 12:11:16 CDT Radha Kisha Collier Dragan, DO, FACP CPT-75601 Ofc Vst, Est Level IV 14:28:01 TAKER AWAY Radha Collier Dragan, DO, FACP CPT-12140 Ofc Vst, Est Level IV 13:04:53 TAKER AWAY Radha Collier Dragan, DO, FACP CPT-95101 Ofc Vst, Est Level III 09:53:23 TAKER AWAY Radha Collier Dragan, DO, FACP CPT-98887 Ofc Vst, Est Level IV 10:00:09 TAKER AWAY Radha Collier Dragan, DO, FACP CPT-73330 Ofc Vst, Est Level III 16:29:13 CDT Radha Collier Dragan, DO, FACP CPT-58934 Ofc Vst, Est Level III 12:09:22 CDT Radha Kisha Collier Dragan, DO, FACP CPT-87848 Ofc Vst, Est Level III 16:07:26 CDT Radha Kisha Álvarezner Radha Collier Dragan, DO, FACP CPT-80375 Ofc Vst, Est Level IV 16:44:16 TAKER AWAY Radha Kisha Dragan [facility] [place] CPT-52630 Ofc Vst, Est Level IV 10:11:36 TAKER AWAY Radha Archibald [facility] [place] CPT-31518 Ofc Vst, Est Level IV 10:48:17 CDT Radha Kisha Álvarezner [facility] [place] CPT-19654 Ofc Vst, Est Level IV 09:30:04 CDT Radha Kisha Archibald [facility] [place] CPT-71650 Ofc Vst, Est Level III 09:56:39 CDT Radha Kisha Archibald [facility] [place] CPT-13498 Ofc Vst, Est Level IV 09:50:35 TAKER AWAY Radha Álvarezner [facility] [place] CPT-56848 Ofc Vst, Est Level IV 17:03:46 CDT Radha Kisha Álvarezner [facility] [place] CPT-72514 Ofc Vst, Est Level IV 19:02:53 CDT Radha Kisha Álvarezner [facility] [place] CPT-27881 Ofc Vst, Est Level II 17:46:16 TAKER AWAY Radha Kelleyannrosaura ÁlvarezArchibald [facility] [place] CPT-32193 Ofc Vst, Est Level III 17:24:30 TAKER AWAY Radha Archibald [facility] [place] CPT-78187 Ofc Vst, Est Level III 17:12:42 TAKER AWAY Radha Álvarezner [facility] [place] CPT-79159 Ofc Vst, New Level III 17:25:48 CDT Radha Archibald [facility] [place] Procedures Code Procedure Name Date Entry Date Standard Description CPT-65452 Handling of specimen from office to lab 13:07:02 TAKER AWAY CPT-45129 Preventive, Est, (40-64) 13:07:02 TAKER AWAY CPT-80551 Handling of specimen from office to lab 20:21:28 TAKER AWAY CPT-27621 Preventive, Est, (40-64) 20:21:28 TAKER AWAY CPT-01942 Injection 12:59:52 TAKER AWAY CPT-62393 Handling of specimen from office to lab 16:51:06 TAKER AWAY CPT-24084 Preventive, Est, (40-64) 16:51:06 TAKER AWAY CPT-31876 Handling of specimen from office to lab 12:56:15 CDT CPT-94440 Preventive, Est, (40-64) 12:56:15 CDT CPT-61652 Preventive, Est, (40-64) 11:45:03 CDT CPT-52758 Handling of specimen from office to lab 11:45:03 CDT CPT-50291 Preventive, Est, (40-64) 10:34:08 CDT CPT-65595 Handling of specimen from office to lab 10:34:08 CDT CPT-56055 EKG w/ Interpretation 16:24:52 CDT CPT-53840 Preventive, Est, (40-64) 16:09:59 CDT CPT-90876 Handling of specimen from office to lab 16:02:29 CDT CPT-10796 Handling of specimen from office to lab 16:29:13 CDT CPT-04007 Injection 12:09:22 CDT
--- OUTSIDE RECORDS SUMMARY | 2017-04-26 11:50 | XMS REPORT ---
Author Author ANA KIM [facility] Address [address] [place] [address] Care Team Providers Care Night Clerk Auditor Name Role Phone ANA KIM Unavailable PROBLEMS Type Condition ICD9-CM Code [id number] Code Onset Dates Condition Status SNOMED Code Problem Dysthymic disorder F34.1 Active 40671183 Problem Generalized anxiety disorder F41.1 Active 773818939 ALLERGIES Unknown Allergies SOCIAL HISTORY No smoking Hx information available PLAN OF CARE Activity Details Follow Up 4 Weeks Reason: Follow-up VITAL SIGNS MEDICATIONS Unknown Medications RESULTS No Results PROCEDURES Procedure Date Ordered Related Diagnosis Body Site Psychotherapy, patient &/family, 45 minutes, established patient Apr 29, 2016 IMMUNIZATIONS No Known Immunizations
[2017-04-26 13:14] LABS: MEAN PLATELET VOLUME 12.2 FL (7.4-10.4); RED BLOOD COUNT 4.5 10^6/uL (4.35-5.85); RED CELL DISTRIBUTION WIDTH 15.6 % (10.0-14.5); WHITE BLOOD COUNT 8.2 10^3/uL (4.3-11.0)
--- NOTE | 2017-04-26 14:28 | Anesthesia-Procedure Note ---
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 Plt count 340,000 and she takes no blood thinners. +/- LP discussed with patient and ?'s answered, consent signed. Sterile P/D with ChloraPrep. 1% Lidocaine for local at the L4-5 level. 22 G Azael needle used with only bony contact. Several re-directs with occasional transient paresthesias, always stopped immediately with needle withdrawal. Fátima Le attempted first and I took over the procedure after several attempts. After 2 redirects, I relocalized at the L3-4 level. 22 G Azael needle used and + CSF after redirect times one at this level. Opening pressure of 18 cm CSF noted. ~2 ml CSF times 4 vials sent to the lab per Dr Archibald's order. Sterile bandage applied. Pt tolerated the procedure well. Stop Time: 14:12 GOMEZ MORALES DO Apr 26, 2017 14:28
[2017-04-26 14:51] LABS: APPEARANCE,CSF CLEAR; COLOR,CSF COLORLESS; WHITE BLOOD CELL,CSF 1 CELLS (0-5)
[2017-04-26 14:53] LABS: CSF GLUCOSE 57 MG/DL (50-80); CSF TOTAL PROTEIN 21 MG/DL (15-40)
== END | disposition home or self-care (01) ==
LOC: SDC 11:37
PROVIDERS: ATTEND Internal Medicine
DX: G40.919 Epilepsy, unspecified, intractable, without status epilepticus (principal)
CPT/HCPCS: 36415; 82945; 83916; 84157; 85027; 87070; 87205; 89051

== ENCOUNTER → 2017-08-27 | Outpatient (CLI) | payer OTHER ==
[2017-08-27 08:38] LABS: BASOPHILS % (AUTO) 1 % (0-10); EOSINOPHILS # (AUTO) 0.2 10^3/uL (0.0-0.3); EOSINOPHILS % (AUTO) 3 % (0-10); HEMATOCRIT 42 % (35-52); HEMOGLOBIN 13.6 G/DL (11.5-16.0); LYMPHOCYTES # (AUTO) 2.8 X 10^3 (1.0-4.0); LYMPHOCYTES % (AUTO) 35 % (12-44); MEAN CORPUSCULAR HEMOGLOBIN 29 PG (25-34); MEAN CORPUSCULAR HGB CONC 33 G/DL (32-36); MEAN CORPUSCULAR VOLUME 90 FL (80-99); MEAN PLATELET VOLUME 11.3 FL (7.4-10.4); MONOCYTES # (AUTO) 0.8 X 10^3 (0.0-1.0); MONOCYTES % (AUTO) 10 % (0-12); NEUTROPHILS # (AUTO) 4.2 X 10^3 (1.8-7.8); NEUTROPHILS % (AUTO) 52 % (42-75); PLATELET COUNT 305 10^3/uL (130-400); RED BLOOD COUNT 4.64 10^6/uL (4.35-5.85); RED CELL DISTRIBUTION WIDTH 14.8 % (10.0-14.5)
[2017-08-27 09:04] LABS: ALANINE AMINOTRANSFERASE 32 U/L (0-55); ALBUMIN 4.2 GM/DL (3.2-4.5); ALKALINE PHOSPHATASE 91 U/L (40-136); BILIRUBIN,TOTAL 0.4 MG/DL (0.1-1.0); BUN/CREATININE RATIO 17; CALCIUM 9.5 MG/DL (8.5-10.1); CARBON DIOXIDE 26 MMOL/L (21-32); CHLORIDE 104 MMOL/L (98-107); CHOLESTEROL 221 MG/DL (< 200); CREATININE SERUM 0.81 MG/DL (0.60-1.30); GFR ESTIMATED > 60; GLUCOSE 89 MG/DL (70-105); HDL CHOLESTEROL 69 MG/DL (40-60); POTASSIUM 4.1 MMOL/L (3.6-5.0); SODIUM 140 MMOL/L (135-145); TOTAL PROTEIN 7.1 GM/DL (6.4-8.2); TRIGLYCERIDES 129 MG/DL (<150); VLDL CHOLESTEROL 26 MG/DL (5-40)
== END ==
LOC: LAB 08:22
PROVIDERS: ATTEND Internal Medicine
DX: Z00.00 Encounter for general adult medical examination without abnormal findings (principal); E78.1 Pure hyperglyceridemia; E03.9 Hypothyroidism, unspecified
CPT/HCPCS: 36415; 80053; 80061; 84439; 84443; 85025

== ENCOUNTER → 2017-10-28 | Outpatient (CLI) | payer OTHER ==
--- NOTE | 2017-10-28 19:14 | Diagnostic Imaging Report ---
INDICATION: Routine screening. COMPARISON: Comparison is made with prior mammograms from 06/01/2016 and 09/21/2014. TECHNIQUE: 2D and 3D bilateral screening mammography was performed with computer-aided detection (CAD) system. FINDINGS: Scattered fibroglandular densities are identified bilaterally. There is a cluster of microcalcifications in the outer left breast, which appears stable when compared with prior studies. No mass or malignant appearing microcalcifications are seen. The axillae are unremarkable. IMPRESSION: No mammographic features suspicious for malignancy are identified. ACR BI-RADS Category 2: Benign findings. Result letter will be mailed to the patient. Note: At least 10% of breast cancer is not imaged by mammography. Dictated by: Dictated on workstation # [id number]
== END ==
LOC: RAD 11:15
PROVIDERS: ATTEND Internal Medicine
DX: Z12.31 Encounter for screening mammogram for malignant neoplasm of breast (principal); R59.0 Localized enlarged lymph nodes
CPT/HCPCS: 77067

== ENCOUNTER → 2017-10-28 | Outpatient (CLI) | payer OTHER | LOC: LAB 11:25 | PROVIDERS: ATTEND Physician Assistant | DX: Z51.81 Encounter for therapeutic drug level monitoring (principal); Z79.899 Other long term (current) drug therapy | CPT/HCPCS: 36415; 86480 ==

== ENCOUNTER → 2018-02-28 | Outpatient (CLI) | payer OTHER ==
[2018-02-28 08:45] LABS: ALANINE AMINOTRANSFERASE 30 U/L (0-55); ALKALINE PHOSPHATASE 92 U/L (40-136); BILIRUBIN,TOTAL 0.4 MG/DL (0.1-1.0); BUN/CREATININE RATIO 14; CALCIUM 9.3 MG/DL (8.5-10.1); CARBON DIOXIDE 22 MMOL/L (21-32); CHLORIDE 105 MMOL/L (98-107); CHOLESTEROL 250 MG/DL (< 200); CREATININE SERUM 0.79 MG/DL (0.60-1.30); GFR ESTIMATED > 60; GLUCOSE 93 MG/DL (70-105); HDL CHOLESTEROL 71 MG/DL (40-60); SODIUM 140 MMOL/L (135-145); TOTAL PROTEIN 7.2 GM/DL (6.4-8.2); TRIGLYCERIDES 148 MG/DL (<150); VLDL CHOLESTEROL 30 MG/DL (5-40)
[2018-02-28 09:07] LABS: FREE T4 (FREE THYROXINE) 1.19 NG/DL (0.70-1.48)
[2018-02-28 09:11] LABS: POTASSIUM 4.3 MMOL/L (3.6-5.0)
== END ==
LOC: LAB 08:10
PROVIDERS: ATTEND Internal Medicine
DX: Z00.00 Encounter for general adult medical examination without abnormal findings (principal); E03.9 Hypothyroidism, unspecified; E78.1 Pure hyperglyceridemia; E78.00 Pure hypercholesterolemia, unspecified
CPT/HCPCS: 36415; 80053; 80061; 84439; 84443

== ENCOUNTER → 2018-04-06 | Outpatient (CLI) | payer OTHER ==
[2018-04-06 12:17] LABS: BUN/CREATININE RATIO 14; CREATININE SERUM 0.86 MG/DL (0.60-1.30); GFR ESTIMATED > 60
== END ==
LOC: LAB 11:48
PROVIDERS: ATTEND Nurse Practitioner Family
DX: R06.09 Other forms of dyspnea (principal)
CPT/HCPCS: 36415; 82565; 84520

== ENCOUNTER → 2018-04-08 | Outpatient (CLI) | payer OTHER ==
[~2018-04-08] MED LIST changes: +IOHEXOL 350 MG/ML 150 ML (OMNIPAQUE 350) VIAL IV ONE; +NS 250 ML (IVPB) BAG IV ONE; +RECEIVED CONTRAST (Hold Metformin) IV SCH
--- NOTE | 2018-04-08 10:05 | Diagnostic Imaging Report ---
PROCEDURE: CT angiography of the chest with contrast. TECHNIQUE: Multiple contiguous axial images were obtained through the chest after uneventful bolus administration of intravenous contrast. 2D reconstructed CTA MIP acquisitions were also performed. INDICATION: Shortness of breath. There are no prior CTA chest examinations available for comparison. The plain film examination of the chest performed on 06/03/2012 failed to show any sign of an acute cardiopulmonary abnormality. There is no defect within the pulmonary arteries to indicate a pulmonary embolus. The aorta is not abnormally dilated and there is no sign of dissection. The heart size is within normal limits. There are no coronary artery calcifications identified. The lungs are generally clear. There is no sign of failure, pneumonia or a pleural effusion to indicate an acute abnormality. There is no parenchymal lung mass identified either. There is no mediastinal or hilar adenopathy. The thyroid gland was not well visualized. The sections through the upper abdomen show the liver is mildly enlarged and of lower density than usually seen. This does suggest fatty metamorphosis. There is no acute abnormality of the upper abdomen. The bone windows are unremarkable for an acute fracture. There does appear to be a 20-30% compression deformity of the superior endplate of T12. I suspect this injury is long-standing in nature. There is no obvious breast mass identified. IMPRESSION: 1. There is no evidence for an acute cardiopulmonary abnormality. In particular, there is no sign of a pulmonary embolus. 2. There is a 20-30% compression fracture of the superior endplate of T12. This injury seems to be chronic in nature. Dictated by: Dictated on workstation # [id number]
== END ==
LOC: RAD 09:14
PROVIDERS: ATTEND Internal Medicine Critical Care Medicine
DX: S22.080A Wedge compression fracture of T11-T12 vertebra, initial encounter for closed fracture (principal); G47.10 Hypersomnia, unspecified; G47.33 Obstructive sleep apnea (adult) (pediatric); J30.9 Allergic rhinitis, unspecified
CPT/HCPCS: 71275

== ENCOUNTER → 2018-04-20 | Outpatient (CLI) | payer OTHER ==
[~2018-04-20] MED LIST changes: -IOHEXOL 350 MG/ML 150 ML (OMNIPAQUE 350) VIAL IV ONE; -NS 250 ML (IVPB) BAG IV ONE; -RECEIVED CONTRAST (Hold Metformin) IV SCH; +RT-ALBUTEROL SULF 2.5 MG/3 ML PRE-MIX VIAL INH ONE; +RT-ALBUTEROL SULF 2.5 MG/3 ML PRE-MIX VIAL ONE
== END ==
LOC: RT 15:50
PROVIDERS: ATTEND Nurse Practitioner Family
DX: G47.33 Obstructive sleep apnea (adult) (pediatric) (principal); J30.9 Allergic rhinitis, unspecified; R06.09 Other forms of dyspnea; G47.10 Hypersomnia, unspecified
CPT/HCPCS: 94060; 94726; 94729

== ENCOUNTER → 2018-08-24 | Outpatient (CLI) | payer OTHER ==
[~2018-08-24] MED LIST changes: -RT-ALBUTEROL SULF 2.5 MG/3 ML PRE-MIX VIAL INH ONE; -RT-ALBUTEROL SULF 2.5 MG/3 ML PRE-MIX VIAL ONE
[2018-08-24 09:53] LABS: BASOPHILS # (AUTO) 0.1 10^3/uL (0.0-0.1); BASOPHILS % (AUTO) 1 % (0-10); EOSINOPHILS # (AUTO) 0.3 10^3/uL (0.0-0.3); EOSINOPHILS % (AUTO) 4 % (0-10); HEMATOCRIT 41 % (35-52); HEMOGLOBIN 13.1 G/DL (11.5-16.0); LYMPHOCYTES # (AUTO) 2.6 X 10^3 (1.0-4.0); LYMPHOCYTES % (AUTO) 35 % (12-44); MEAN CORPUSCULAR HEMOGLOBIN 29 PG (25-34); MEAN CORPUSCULAR HGB CONC 32 G/DL (32-36); MEAN CORPUSCULAR VOLUME 90 FL (80-99); MEAN PLATELET VOLUME 11.8 FL (7.4-10.4); MONOCYTES # (AUTO) 0.7 X 10^3 (0.0-1.0); MONOCYTES % (AUTO) 9 % (0-12); NEUTROPHILS # (AUTO) 3.8 X 10^3 (1.8-7.8); NEUTROPHILS % (AUTO) 52 % (42-75); PLATELET COUNT 269 10^3/uL (130-400); RED CELL DISTRIBUTION WIDTH 15.5 % (10.0-14.5); WHITE BLOOD COUNT 7.4 10^3/uL (4.3-11.0)
[2018-08-24 10:05] LABS: ALANINE AMINOTRANSFERASE 38 U/L (0-55); ALBUMIN 4.1 GM/DL (3.2-4.5); ALKALINE PHOSPHATASE 104 U/L (40-136); BILIRUBIN,TOTAL 0.4 MG/DL (0.1-1.0); BUN/CREATININE RATIO 14; CALCIUM 9.8 MG/DL (8.5-10.1); CARBON DIOXIDE 26 MMOL/L (21-32); CHLORIDE 106 MMOL/L (98-107); CHOLESTEROL 230 MG/DL (< 200); CREATININE SERUM 0.79 MG/DL (0.60-1.30); GFR ESTIMATED > 60; GLUCOSE 96 MG/DL (70-105); HDL CHOLESTEROL 73 MG/DL (40-60); POTASSIUM 4.1 MMOL/L (3.6-5.0); SODIUM 140 MMOL/L (135-145); TRIGLYCERIDES 87 MG/DL (<150); VLDL CHOLESTEROL 17 MG/DL (5-40)
[2018-08-24 10:26] LABS: FREE T4 (FREE THYROXINE) 0.98 NG/DL (0.70-1.48)
== END ==
LOC: LAB 09:28
PROVIDERS: ATTEND Internal Medicine
DX: Z00.00 Encounter for general adult medical examination without abnormal findings (principal); E03.9 Hypothyroidism, unspecified; E78.1 Pure hyperglyceridemia; E78.00 Pure hypercholesterolemia, unspecified
CPT/HCPCS: 36415; 80053; 80061; 84439; 84443; 85025